=== PATIENT | male | born 1970 | race African-American/Black ===

== ENCOUNTER 2017-05-31 21:06 | Observation (INO) | payer SELFPAY ==
--- NOTE | 2017-05-31 21:38 | DR.GENAD ---
HPI - PCP Primary Care Physician: nfd - Complaint/Symptoms Chief Complaint Doctors Comments: Patient admits to having chest pressure mid- sternal for two days. The pressure seems to come and go. The duration is up to several minutes. He denies a history of cardiopulmonary disease. Chief Complaint:: "I CAN'T BREATH, AND I HAVE A LOT OF PRESSURE ON MY CHEST- POINTING MID CHEST WALL. - Source History Provided: Patient - Mode of Arrival Mode of Arrival: Ambulatory - Timing Onset of Chief Complaint: 05/28/17 PMH - PMH Past Medical History: No Past Surgical History: No Surgical History: Other - Family History History of Family Medical Conditions: Yes Family Medical History: Diabetes Mellitus, [place], Coronary Artery Disease, Hypertension - Social History Alcohol Use: Occasionally Do you use any recreational Drugs:: No (8 DAYS CLEAN OF THC, COCAINE) Lives With: Significant Other Lives Where: Home - infectious screening Have you traveled outside the country in the last 6 months?: No Isolation: Standard ROS - Review of Systems Eyes: No Symptoms Reported ENTM: No Symptoms Reported Respiratoy: No Symptoms Reported Cardiovascular: No Symptoms Reported Gastrointestinal/Abdominal: No Symptoms Reported Genitourinary: No Symptoms Reported Neurological: No Symptoms Reported Musculoskeletal: Chest wall Integumentary: No Symptoms Reported Hematologic/Lymphatic: No Symptoms Reported Endocrine: No Symptoms Reported Psychiatric: No Symptoms Reported All Other Systems: Reviewed and Negative PE - Vital Signs Vitals: Temperature 98.3 F Pulse Rate [Apical] 104 Pulse Rate 104 Respiratory Rate 24 Blood Pressure [Left Arm] 112/71 Blood Pressure 133/89 O2 Sat by Pulse Oximetry 100 - General Limitations: No Limitations General Appearance: Alert, In No Apparent Distress - Head Head Exam: Normal Inspection, Atraumatic - Eyes Eye exam: Normal Appearance, PERRL, EOMI - ENT ENT Exam: Normal Exam External Ear Exam: Normal External Inspection TM/Canal Exam: Bilateral Normal Nose Exam: Normal Nose Exam Mouth Exam: Normal Inspection Throat Exam: Normal Inspection - Neck Neck Exam: Normal Inspection, Full ROM - Chest Chest Inspection: Normal Inspection - Respiratory Respiratory Exam: Normal Lung Sounds Bilat Respiratory Exam: Bilateral Clear to Auscultation - Cardiovascular Cardiovascular Exam: Regular Rate, Normal Rhythm - Abdominal Exam Abdominal Exam: Normal Inspection, Normal Bowel Sounds Abdominal Tenderness: negative: RUQ, RLQ, LUQ, LLQ, Epigastrium, Suprapubic, Diffuse, Mild, Moderate, Severe, Other - Extremities Extremities Exam: Normal Inspection, Full ROM - Back Back Exam: Normal Inspection, Full ROM - Neurologic Neurological Exam: Alert, Oriented X3, CN II-XII Intact - Psychiatric Psychiatric Exam: Normal Affect - Skin Skin Exam: Warm, Dry, Intact Course - Reevaluation 1st: Improved ROR - Labs Reviewed Laboratory Results Reviewed?: Yes (D Dimer 421) Result Diagrams: 05/31/17 21:25 05/31/17 21:25 Laboratory: WBC 7.9 X10^3/uL (3.6-10.0) 05/31/17 21: RBC 4.87 X10^6/uL (4.7-6.0) 05/31/17 21: Hgb 14.9 g/dL (13.5-18.0) 05/31/17: Hct 43.0 % (42.0-54.0) 05/31/17 21: MCV 88.3 fL (80.0-100.0) 05/31/17 21: MCH 30.7 pg (27.0-34.0) 05/31/17 21: MCHC 34.7 g/dL (33.0-35.0) 05/31/17: RDW 13.6 % (11.6-16.5) 05/31/17: Plt Count 290 X10^3/uL (150.0-450.0) 05/31/17: MPV 8.6 fL (7.4-11.0) 05/31/17: Neut % 39.4 % (42.0-75.0) L 05/31/17 21: Lymph % 46.3 % (21.0-51.0) 05/31/17 21: [place] % 11.8 % (0.0-13.0) 05/31/17: Eos % 1.4 % (0.9-2.9) 05/31/17 21: Baso % 1.1 % (0.2-1.0) H 05/31/17 21: Neut # 3.1 x10^3/uL (2.2-4.8) 05/31/17 21: Lymph # 3.7 X10^3/uL (1.3-2.9) H 05/31/17 21:25 [place] # 0.9 x10^3/uL (0.3-0.8) H 05/31/17 21:25 Eos # 0.1 x10^3/uL (0.0-0.2) 05/31/17 21:25 Baso # 0.1 X10^3/uL (0.0-0.1) 05/31/17 21:25 Absolute Nucleated RBC 0.1 /100WBC 05/31/17 21:25 INR Target Range - 05/31/17 21:25 INR 1.10 (0.8-1.3) 05/31/17 21:25 PTT 27.2 SECONDS (22.9-36.5) 05/31/17 21:25 PTT Comment - 05/31/17 21:25 D-Dimer 421 ng/mL (0-400) H* 05/31/17 21:25 Sodium 138 mmol/L (136-145) 05/31/17 21:25 Corrected Sodium TNP 05/31/17 21:25 Potassium 3.9 mmol/L (3.5-5.1) 05/31/17 21:25 Chloride 103 mmol/L (98-107) 05/31/17 21:25 Carbon Dioxide 23.6 mmol/L (21-32) 05/31/17 21:25 BUN 16 mg/dL (7-18) 05/31/17 21:25 Creatinine 1.43 mg/dL (0.70-1.30) H 05/31/17 21:25 Est GFR (MDRD) Af Amer > 60 (>60) 05/31/17 21:25 Est GFR (MDRD) Non-Af 56 (>60) L 05/31/17 21:25 Glucose 105 mg/dL (65-99) H 05/31/17 21:25 Calcium 8.5 mg/dL (8.5-10.1) 05/31/17 21:25 Corrected Calcium 9.1 mg/dL (8.5-10.1) 05/31/17 21:25 Magnesium 2.1 mg/dL (1.7-2.9) 05/31/17 21:25 Total Bilirubin 0.80 mg/dL (0.2-1.0) 05/31/17 21:25 AST 180 Units/L (15-37) H 05/31/17 21:25 ALT 165 Units/L (12-78) H 05/31/17 21:25 Alkaline Phosphatase 104 Units/L (46-116) 05/31/17 21:25 Creatine Kinase 93 Units/L (39-308) 05/31/17 21:25 CK-MB (CK-2) 1.3 ng/mL (0-4.0) 05/31/17 21:25 CK/CKMB % Calc 1.4 % (<4) 05/31/17 21:25 Troponin I 0.13 ng/mL (0-1.5) 05/31/17 21:25 Total Protein 7.6 g/dL (6.4-8.2) 05/31/17 21:25 Albumin 3.3 g/dL (3.4-5.0) L 05/31/17 21:25 Globulin 4.3 g/dL (2.5-4.5) 05/31/17 21:25 Albumin/Globulin Ratio 0.8 Ratio (1.1-2.1) L 05/31/17 21:25 Specimen Type Clean catch urine 05/31/17 22:45 Urine Color Yellow (YELLOW) 05/31/17 22:45 Urine Appearance Clear (CLEAR) 05/31/17 22:45 Urine pH 5.0 (5.0 - 8.0) 05/31/17 22:45 Ur Specific [place] 1.010 (1.000-1.030) 05/31/17 22:45 Urine Protein Negative (NEGATIVE) 05/31/17 22:45 Urine Glucose (UA) Negative (NEGATIVE) 05/31/17 22:45 Urine Ketones Negative (NEGATIVE) 05/31/17 22:45 Urine Occult Blood 4+ (NEGATIVE) 05/31/17 22:45 Urine Nitrite Negative (NEGATIVE) 05/31/17 22:45 Urine Bilirubin Negative (NEGATIVE) 05/31/17 22:45 Urine Urobilinogen Normal (NORMAL) 05/31/17 22:45 Ur Leukocyte Esterase Negative (NEGATIVE) 05/31/17 22:45 Urine RBC 1-6 /HPF (NONE SEEN) 05/31/17 22:45 Urine WBC None seen /HPF (NONE SEEN) 05/31/17 22:45 Ur Squamous Epith Cells Rare /HPF (NEGATIVE) 05/31/17 22:45 Urine Bacteria Negative /HPF (NEGATIVE) 05/31/17 22:45 Ur Culture Indicated? No/not indicated 05/31/17 22:45 Urine Opiates Screen Negative (NEG=<300) 05/31/17 22:45 Urine Methadone Screen Negative (NEG=<300) 05/31/17 22:45 Ur Barbiturates Screen Negative (NEG=<200) 05/31/17 22:45 Ur Phencyclidine Scrn Negative (NEG=<25) 03 22:45 Ur Amphetamines Screen Negative (NEG=<1000) 03 22:45 U Benzodiazepines Scrn Negative (NEG=<200) 05/31/17 22:45 Urine Cocaine Screen Negative (NEG=<300) 05/31/17 22:45 U Marijuana (THC) Screen Negative (NEG=<50) 05/31/17 22:45 - XRAY XRAY Interpreted by: Radiologist (Chest: There is no pneumothorax or large effusion. Heart size is enlarged. Monitoring leads obscure minimal detail. Bilateral increased interstitial markings in a perihilar distribution noted. Impression: Cardiomegaly and pulmonary edema compatible with CHF. Follow up to resolution and with PA and Lat chest to exclude underlying process. CTA: Findings: There is cardiomegaly. Aortic arch branch vessels appear normal. There are bilateral effusions and patchy alveolar ground-glass opacities. Scarring is seen in the bases. Pulmonary artery bolus timing is adequate, without central or segmental pulmonary artery filling defect identified. Right middle lobe harmatoma noted. Shotty hilar lymph nodes noted. Impresson: There is cardiomegaly and pulmonary edema, with small right effusion, compatible with congestive hear failure. Concurrent pneumonia possible, No ulmonary htromboembolus seen. Nonobstructing right upper pole renal stone.) - Diagnosis Discharge Problem: Right kidney stone CHF (congestive heart failure) Qualifiers: Heart failure type: unspecified Heart failure chronicity: acute Qualified Code( s): I50.9 - Heart failure, unspecified Pneumonia Qualifiers: Pneumonia type: due to unspecified organism Laterality: bilateral Lung location : unspecified part of lung Qualified Code(s): J18.9 - Pneumonia, unspecified organism - Discharge Plan Condition: Stable - Follow ups/Referrals Follow ups/Referrals: NFD,None [Primary Care Provider] - 3 days - Instructions
[2017-05-31 21:48] LABS: BASOPHILS # (AUTO) 0.1 X10^3/uL (0.0-0.1); BASOPHILS % (AUTO) 1.1 % (0.2-1.0); EOSINOPHILS # (AUTO) 0.1 x10^3/uL (0.0-0.2); EOSINOPHILS % (AUTO) 1.4 % (0.9-2.9); HEMOGLOBIN 14.9 g/dL (13.5-18.0); LYMPHOCYTES # (AUTO) 3.7 X10^3/uL (1.3-2.9); LYMPHOCYTES % (AUTO) 46.3 % (21.0-51.0); MEAN CORPUSCULAR HEMOGLOBIN 30.7 pg (27.0-34.0); MEAN CORPUSCULAR HGB CONC 34.7 g/dL (33.0-35.0); MEAN CORPUSCULAR VOLUME 88.3 fL (80.0-100.0); MEAN PLATELET VOLUME 8.6 fL (7.4-11.0); MONOCYTES # (AUTO) 0.9 x10^3/uL (0.3-0.8); MONOCYTES % (AUTO) 11.8 % (0.0-13.0); NEUTROPHILS # (AUTO) 3.1 x10^3/uL (2.2-4.8); NEUTROPHILS % (AUTO) 39.4 % (42.0-75.0); PLATELET COUNT 290 X10^3/uL (150.0-450.0); RED BLOOD COUNT 4.87 X10^6/uL (4.7-6.0); RED CELL DISTRIBUTION WIDTH 13.6 % (11.6-16.5); WHITE BLOOD COUNT 7.9 X10^3/uL (3.6-10.0)
[2017-05-31 22:03] LABS: BLOOD UREA NITROGEN 16 mg/dL (7-18); CALCIUM 8.5 mg/dL (8.5-10.1); CARBON DIOXIDE 23.6 mmol/L (21-32); CHLORIDE 103 mmol/L (98-107); CREATININE 1.43 mg/dL (0.70-1.30); SODIUM 138 mmol/L (136-145); TROPONIN I 0.13 ng/mL (0-1.5); eGFR BLACK RACES > 60 (>60); eGFR NON BLACK RACES 56 (>60)
[2017-05-31 22:07] LABS: ALANINE AMINOTRANSFERASE 165 Units/L (12-78); ALBUMIN 3.3 g/dL (3.4-5.0); ALKALINE PHOSPHATASE 104 Units/L (46-116); ASPARTATE AMINO TRANSFERASE 180 Units/L (15-37); CKMB % 1.4 % (<4); COR CA(FOR HYPOALB) 9.1 mg/dL (8.5-10.1); CREATINE KINASE 93 Units/L (39-308); CREATINE KINASE MB 1.3 ng/mL (0-4.0); MAGNESIUM 2.1 mg/dL (1.7-2.9); TOTAL PROTEIN 7.6 g/dL (6.4-8.2)
--- NOTE | 2017-05-31 22:15 | RAD ---
Chest AP portable Indication: Chest pain Findings: There is no pneumothorax or large effusion. Heart size is enlarged. Monitoring leads obscur e minimal detail. Bilateral increased interstitial markings in a perihilar distribution noted. Impression: Cardiomegaly and pulmonary edema compatible with CHF. Follow-up to resolution and with PA and lateral chest , to exclude underlying process. Reported By:
[2017-05-31] MEDS ORDERED: LASIX IVP ONE ×2 (22:24→22:27)
[2017-05-31 23:11] LABS: BILIRUBIN,URINE NEGATIVE (NEGATIVE); BLOOD/HEMOGLOBIN,URINE 4+ (NEGATIVE); GLUCOSE, URINE NEGATIVE (NEGATIVE); KETONES,URINE NEGATIVE (NEGATIVE); LEUKOCYTE ESTERASE ,URINE NEGATIVE (NEGATIVE); NITRITES,URINE NEGATIVE (NEGATIVE); PROTEIN,URINE NEGATIVE (NEGATIVE); UROBILINOGEN,URINE NORMAL (NORMAL)
[2017-05-31 23:23] LABS: APPEARANCE,URINE CLEAR (CLEAR); BACTERIA,URINE NEGATIVE /HPF (NEGATIVE); COLOR,URINE YELLOW (YELLOW); SQUAMOUS EPITHELIAL CELL,UR RARE /HPF (NEGATIVE)
--- NOTE | 2017-05-31 23:24 | CT ---
CT angiogram chest with contrast Indication: Dyspnea and elevated D-dimer Technique: Helical images through the chest after IV contrast. Coronal and sagittal reformats provi ded. MIP images provided. Findings: Nonobstructing right upper pole renal stone partially visualized. No other acute abdomina l abnormality seen on limited images. Review of bone windows shows no destructive osseous lesion. Chest: There is cardiomegaly. Aortic arch branch vessels appear normal. There are bilateral effusi ons and patchy alveolar ground-glass opacities. Scarring is seen in the bases. Pulmonary artery bolus timing is adequate, without central or segmental pulmonary artery filling defe ct identified. Right middle lobe hamartoma noted. Shotty hilar lymph nodes noted. Impression: 1. There is cardiomegaly and pulmonary edema, with small right effusion, compatible with congestive h eart failure 2. Concurrent pneumonia possible. 3. No pulmonary thromboembolus seen. 4. Nonobstructing right upper pole renal stone. Reported By:
[2017-05-31] MEDS ORDERED: TUSSIONEX PENNKINETIC SUSP PO PRN (23:37)
[2017-05-31] MEDS ORDERED: NS 1/2 1000 ML IV 1,000 ML IV ONE (23:41)
[2017-05-31] MEDS ORDERED: LEVAQUIN PREMIX IV 500 MG 500 MG/100 ML BAG IV ONE (23:41)
[2017-05-31] MEDS ORDERED: NS 1/2 1000 ML IV 1,000 ML IV SCH (23:45)
[2017-05-31] MEDS ORDERED: LEVAQUIN PREMIX IV 750 MG 750 MG/150 ML BAG IV SCH (23:45)
[2017-05-31] MEDS ORDERED: SALINE 3% 15 ML NEB TX ONE (23:48)
[2017-05-31] MEDS ORDERED: SALINE 3% 15 ML NEB TX NEB ONE (23:52)
[2017-06-01] MEDS ORDERED: MORPHINE SULFATE INJ 2 MG INJ IVP PRN (03:01)
[2017-06-01 03:39] VITALS: BMI 26.3
[2017-06-01 04:42] LABS: BASOPHILS # (AUTO) 0.1 X10^3/uL (0.0-0.1); BASOPHILS % (AUTO) 1.3 % (0.2-1.0); EOSINOPHILS # (AUTO) 0.1 x10^3/uL (0.0-0.2); HEMATOCRIT 43.1 % (42.0-54.0); HEMOGLOBIN 15.1 g/dL (13.5-18.0); LYMPHOCYTES # (AUTO) 2.4 X10^3/uL (1.3-2.9); LYMPHOCYTES % (AUTO) 31.3 % (21.0-51.0); MEAN CORPUSCULAR HEMOGLOBIN 30.5 pg (27.0-34.0); MEAN CORPUSCULAR VOLUME 87.1 fL (80.0-100.0); MEAN PLATELET VOLUME 8.4 fL (7.4-11.0); MONOCYTES # (AUTO) 0.8 x10^3/uL (0.3-0.8); MONOCYTES % (AUTO) 10.8 % (0.0-13.0); NEUTROPHILS # (AUTO) 4.2 x10^3/uL (2.2-4.8); NEUTROPHILS % (AUTO) 55.6 % (42.0-75.0); PLATELET COUNT 298 X10^3/uL (150.0-450.0); RED BLOOD COUNT 4.95 X10^6/uL (4.7-6.0); RED CELL DISTRIBUTION WIDTH 13.4 % (11.6-16.5); WHITE BLOOD COUNT 7.6 X10^3/uL (3.6-10.0)
[2017-06-01 04:47] LABS: CHOL/HDL RATIO 5.3 (0.0-5.0)
[2017-06-01] MEDS ORDERED: DUONEB 0.5 MG/3 MG ONE (04:50)
[2017-06-01 04:51] LABS: BLOOD UREA NITROGEN 15 mg/dL (7-18); CALCIUM 8.6 mg/dL (8.5-10.1); CARBON DIOXIDE 20.7 mmol/L (21-32); CHLORIDE 103 mmol/L (98-107); CREATININE 1.25 mg/dL (0.70-1.30); SODIUM 138 mmol/L (136-145); TROPONIN I 0.13 ng/mL (0-1.5); eGFR BLACK RACES > 60 (>60); eGFR NON BLACK RACES > 60 (>60)
[2017-06-01 04:56] LABS: ALANINE AMINOTRANSFERASE 153 Units/L (12-78); ALBUMIN 3.3 g/dL (3.4-5.0); ALKALINE PHOSPHATASE 95 Units/L (46-116); ASPARTATE AMINO TRANSFERASE 103 Units/L (15-37); CKMB % 1.5 % (<4); COR CA(FOR HYPOALB) 9.2 mg/dL (8.5-10.1); CREATINE KINASE 76 Units/L (39-308); CREATINE KINASE MB 1.1 ng/mL (0-4.0); TOTAL PROTEIN 7.6 g/dL (6.4-8.2)
[2017-06-01] MEDS ORDERED: DUONEB 0.5 MG/3 MG NEB SCH (05:00)
[2017-06-01 05:17] LABS: B-TYPE NATRIURETIC PEPTIDE 1620 pg/mL (0-79)
[2017-06-01 07:12] VITALS: BP 129/98
[2017-06-01] MEDS ORDERED: ROBITUSSIN DM PO SCH (09:00)
[2017-06-01 10:57] LABS: CKMB % 1.7 % (<4); CREATINE KINASE MB 1.2 ng/mL (0-4.0); TROPONIN I 0.12 ng/mL (0-1.5)
[2017-06-01] MEDS ORDERED: LEVAQUIN PREMIX IV 750 MG 750 MG/150 ML BAG IV SCH (21:00)
== END 2017-06-01 10:50 | disposition home or self-care (01) ==
LOC: ER 21:18 → OBS 06-01 02:10
PROVIDERS: ADMIT Internal Medicine; ATTEND Internal Medicine
DX: J18.9 Pneumonia, unspecified organism (principal); R07.89 Other chest pain; I50.9 Heart failure, unspecified; Q85.9 Phakomatosis, unspecified; N20.0 Calculus of kidney; I51.7 Cardiomegaly; R94.31 Abnormal electrocardiogram [ECG] [EKG]
CPT/HCPCS: 36415; 71045; 71275; 80053; 80061; 80307; 81001; 82550; 82553; 83735; 83880; 84484; 85025; 85378; 85610; 85730; 87040; 93005; 93010; 94640; 94760; 96365; 96367; 96374; 96375; 99284; A4222; G0378; G0434; J1940; J1956; J7620

== ENCOUNTER 2017-06-25 17:58 | Emergency (ER) | payer SELFPAY ==
[2017-06-25 18:10] VITALS: BMI 27.7
--- NOTE | 2017-06-25 18:13 | DR.CP ---
HPI - Time Seen Time seen: 18:10 - PCP Primary Care Physician: MILDRED BOOGIE - HPI Comment HPI Comment: WORSE TODAY. RECENT PNEUMONIA AND CURRENTLY ON LASIX. PATIENT SAID HE IS COMPLIANT WITH HIS MEDICATIONS. NO FEVER. STILL COUGHING, PRODUCTIVE COUGH , CLEAR SPUTUM. - Complaint Chief Complaint Doctor Comments: INCREASING SOB AND CHEST PAIN TIMES 2 DAYS. Chief Complaint:: PT C/O SOB, AND CHEST PAIN .. PT C/O HAVING PNEUMONIA A WEEK AGO AND THIS AM PT STATES HIM SYMPTOMS WORSEN,,, PTS LUNGS ARE CLEAR.. PT IS HAVING HEAVY RESP IN TRIAGE, Self Treatment fo Chief Complaint: ALEVE , NEBULIZERS , - Reviewed Nurses Notes Review: Yes - Source History Provided: Patient - Mode of Arrival Mode of Arrival: Ambulatory - Timing Onset of Chief Complaint: 06/24/17 Came on: Gradually Pain: Present Now - Duration Duration: Constant Duration: Days - Location Location of Chest Pain: Left, Chest Chest Pain Radiation Location: None - Context Onset: At rest, With light exertion Cardiac Risk Factors: None PE Risk Factors: None History of: Similar pain in the past Prehospital Care: None - Quality Quality: Sharp - Severity Severity: Moderate - Modifying Factors Worsens: Nothing Impoves: Nothing - Associated Signs and Symptoms Associated Signs and Symptoms: Shortness of Breath PMH - PMH Past Medical History: No Past Surgical History: No Surgical History: Other - Family History History of Family Medical Conditions: No Family Medical History: Diabetes Mellitus, [place], Coronary Artery Disease, Hypertension - Social History Does patient currently use any type of tobacco product: No Have you used tobacco products in the last 12 months: No Type of Tobacco Use: None Does any household member use tobacco: No Alcohol Use: None Do you use any recreational Drugs:: No Lives With: Family Lives Where: Home - infectious screening In the last 2 months have you had wt loss of >10#?: NO Have you had fever, night sweats or hemotysis?: No Have you traveled outside the country in the last 6 months?: No Isolation: Standard ROS - Review of Systems Constitutional: No Symptoms Reported Eyes: No Symptoms Reported ENTM: No Symptoms Reported Respiratoy: No Symptoms Reported Cardiovascular: No Symptoms Reported Gastrointestinal/Abdominal: No Symptoms Reported Genitourinary: No Symptoms Reported Neurological: No Symptoms Reported Musculoskeletal: No Symptoms Reported Integumentary: No Symptoms Reported Hematologic/Lymphatic: No Symptoms Reported Endocrine: No Symptoms Reported All Other Systems: Reviewed and Negative PE - Vitals Vitals: Temperature 96.9 F Pulse Rate [Left Brachial] 82 Pulse Rate 107 Respiratory Rate 18 Blood Pressure [Left Arm] 126/74 Blood Pressure 139/69 O2 Sat by Pulse Oximetry 100 - General Limitations: No Limitations General Appearance: Alert - Head Head Exam: Normal Inspection - Eyes Eye exam: Normal Appearance - ENT ENT Exam: Normal External Ear Exam - Chest Chest Inspection: Symmetric Chest Wall Rise - Respiratory Respiratory Exam: Normal Lung Sounds Bilat Respiratory Exam: Bilateral Clear to Auscultation - Cardiovascular Cardiovascular Exam: Regular Rate, Normal Rhythm, Normal Heart Sounds - Abdominal Exam Abdominal Exam: Normal Bowel Sounds, Soft. negative: Tenderness - Extremities Extremities Exam: Normal Inspection - Back Back Exam: Normal Inspection - Neurologic Neurological Exam: Alert, Oriented X3 - Psychiatric Psychiatric Exam: Normal Affect, Normal Mood - Skin Skin Exam: Normal Color MDM - Additional Information Additional Information Obtained From: Family - Differential Diagnosis Differential Diagnosis: Angina, Chest Wall Pain, Myocardial Infarction, Pericarditis, Pleuritis, Pancreatitis, Pneumonia, Pneumothorax, Pulmonary Embolus Course - Treatment Treatment: SEE ORDERS. - Education/Counseling Education/Counseling: Patient, Family, Education Educated On: Diagnosis, Needs for Follow Up ROR - Labs Reviewed Laboratory Results Reviewed?: Yes Result Diagrams: 06/25/17 18:37 06/25/17 18:37 Laboratory: WBC 8.0 X10^3/uL (3.6-10.0) 06/25/17 18:37 RBC 4.98 X10^6/uL (4.7-6.0) 06/25/17 18:37 Hgb 15.3 g/dL (13.5-18.0) 06/25/17 18:37 Hct 44.1 % (42.0-54.0) 06/25/17 18:37 MCV 88.6 fL (80.0-100.0) 06/25/17 18:37 MCH 30.7 pg (27.0-34.0) 06/25/17 18:37 MCHC 34.6 g/dL (33.0-35.0) 06/25/17 18:37 RDW 13.5 % (11.6-16.5) 06/25/17 18:37 Plt Count 326 X10^3/uL (150.0-450.0) 06/25/17 18:37 MPV 7.9 fL (7.4-11.0) 06/25/17 18:37 Neut % (Auto) 51.8 % (42.0-75.0) 06/25/17 18:37 Lymph % (Auto) 34.1 % (21.0-51.0) 06/25/17 18:37 [place] % (Auto) 9.2 % (0.0-13.0) 06/25/17 18:37 Eos % (Auto) 3.5 % (0.9-2.9) H 06/25/17 18:37 Baso % (Auto) 1.4 % (0.2-1.0) H 06/25/17 18:37 Neut # (Auto) 4.1 x10^3/uL (2.2-4.8) 06/25/17 18:37 Lymph # (Auto) 2.7 X10^3/uL (1.3-2.9) 06/25/17 18:37 [place] # (Auto) 0.7 x10^3/uL (0.3-0.8) 06/25/17 18:37 Eos # (Auto) 0.3 x10^3/uL (0.0-0.2) H 06/25/17 18:37 Baso # (Auto) 0.1 X10^3/uL (0.0-0.1) 06/25/17 18:37 Absolute Nucleated RBC 0.1 /100WBC 06/25/17 18: D-Dimer 593 ng/mL (0-400) H* 06/25/17 18:37 Sample Site Right brachial 06/25/17 18:33 ABG pH 7.440 (7.35-7.45) 06/25/17 18:33 ABG pCO2 29.0 mmHg (35.0-45.0) L 06/25/17 18:33 ABG pO2 89.0 mmHg (80.0-100.0) 06/25/17 18:33 ABG HCO3 19.7 mmol/L (22-26) L 06/25/17 18:33 ABG O2 Saturation 97.0 % (90-100) 06/25/17 18:33 ABG Base Excess -3.4 mmol/L (-2.0-2.0) L 06/25/17 18:33 [place] Test Na 06/25/17 18:33 A-a Gradient 24.0 mmHg 06/25/17 18:33 FiO2 21.000 06/25/17 18:33 Blood Gas Comments [place] well aw 06/25/17 18:33 Sodium 139 mmol/L (136-145) 06/25/17 18:37 Corrected Sodium 140 mmol/L (136-145) 06/25/17 18:37 Potassium 3.9 mmol/L (3.5-5.1) 06/25/17 18:37 Chloride 105 mmol/L (98-107) 06/25/17 18:37 Carbon Dioxide 20.4 mmol/L (21-32) L 06/25/17 18:37 BUN 14 mg/dL (7-18) 06/25/17 18:37 Creatinine 1.50 mg/dL (0.70-1.30) H 06/25/17 18:37 Est GFR (MDRD) Af Amer > 60 (>60) 06/25/17 18:37 Est GFR (MDRD) Non-Af 53 (>60) L 06/25/17 18:37 Glucose 133 mg/dL (65-99) H 06/25/17 18:37 Calcium 8.5 mg/dL (8.5-10.1) 06/25/17 18:37 Corrected Calcium TNP 06/25/17 18:37 Total Bilirubin 0.70 mg/dL (0.2-1.0) 06/25/17 18:37 AST 40 Units/L (15-37) H 06/25/17 18:37 ALT 75 Units/L (12-78) 06/25/17 18:37 Alkaline Phosphatase 75 Units/L (46-116) 06/25/17 18:37 Creatine Kinase 76 Units/L (39-308) 06/25/17 21:45 CK-MB (CK-2) 1.2 ng/mL (0-4.0) 06/25/17 21:45 CK/CKMB % Calc 1.6 % (<4) 06/25/17 21:45 Troponin I 0.19 ng/mL (0-1.5) 06/25/17 21:45 B-Natriuretic Peptide 1460 pg/mL (0-79) H* 06/25/17 21:45 Total Protein 7.7 g/dL (6.4-8.2) 06/25/17 18:37 Albumin 3.4 g/dL (3.4-5.0) 06/25/17 18:37 Globulin 4.3 g/dL (2.5-4.5) 06/25/17 18:37 Albumin/Globulin Ratio 0.8 Ratio (1.1-2.1) L 06/25/17 18:37 - XRAY XRAY Interpreted by: Radiologist XRAY Findings: REPORT DISCUSS WITH PATIENT. - EKG Rhythm: ST (EKG NOTED) - Diagnosis Discharge Problem: CHF (congestive heart failure) Qualifiers: Heart failure type: combined systolic and diastolic Heart failure chronicity: acute on chronic Qualified Code(s): I50.43 - Acute on chronic combined systolic (congestive) and diastolic (congestive) heart failure Chest pain Qualifiers: Chest pain type: intercostal pain Qualified Code(s): R07.82 - Intercostal pain Dyspnea Qualifiers: Dyspnea type: shortness of breath Qualified Code(s): R06.02 - Shortness of breath - Discharge Plan Disposition: 01 HOME, SELF-CARE Condition: Stable - Follow ups/Referrals Follow ups/Referrals: NFD,None [Primary Care Provider] - 06/26/17 - Instructions Instructions: Shortness of Breath, Adult, [id number], Shortness of Breath, Adult, Heart Failure, [id number], Chest Pain Observation Additional Instructions: RETURN TO ED IF WORSE.
[2017-06-25 18:54] LABS: BASOPHILS # (AUTO) 0.1 X10^3/uL (0.0-0.1); BASOPHILS % (AUTO) 1.4 % (0.2-1.0); EOSINOPHILS # (AUTO) 0.3 x10^3/uL (0.0-0.2); EOSINOPHILS % (AUTO) 3.5 % (0.9-2.9); HEMATOCRIT 44.1 % (42.0-54.0); HEMOGLOBIN 15.3 g/dL (13.5-18.0); LYMPHOCYTES # (AUTO) 2.7 X10^3/uL (1.3-2.9); LYMPHOCYTES % (AUTO) 34.1 % (21.0-51.0); MEAN CORPUSCULAR HEMOGLOBIN 30.7 pg (27.0-34.0); MEAN CORPUSCULAR HGB CONC 34.6 g/dL (33.0-35.0); MEAN CORPUSCULAR VOLUME 88.6 fL (80.0-100.0); MEAN PLATELET VOLUME 7.9 fL (7.4-11.0); MONOCYTES # (AUTO) 0.7 x10^3/uL (0.3-0.8); MONOCYTES % (AUTO) 9.2 % (0.0-13.0); NEUTROPHILS # (AUTO) 4.1 x10^3/uL (2.2-4.8); NEUTROPHILS % (AUTO) 51.8 % (42.0-75.0); PLATELET COUNT 326 X10^3/uL (150.0-450.0); RED BLOOD COUNT 4.98 X10^6/uL (4.7-6.0); RED CELL DISTRIBUTION WIDTH 13.5 % (11.6-16.5)
[2017-06-25 18:54] LABS: ABG BASE EXCESS -3.4 mmol/L (-2.0-2.0); ABG HCO3 19.7 mmol/L (22-26)
[2017-06-25 19:03] LABS: BLOOD UREA NITROGEN 14 mg/dL (7-18); CALCIUM 8.5 mg/dL (8.5-10.1); CARBON DIOXIDE 20.4 mmol/L (21-32); CHLORIDE 105 mmol/L (98-107); COR NA(FOR HYPERGLY) 140 mmol/L (136-145); SODIUM 139 mmol/L (136-145); TROPONIN I 0.22 ng/mL (0-1.5); eGFR BLACK RACES > 60 (>60); eGFR NON BLACK RACES 53 (>60)
[2017-06-25 19:08] LABS: ALANINE AMINOTRANSFERASE 75 Units/L (12-78); ALBUMIN 3.4 g/dL (3.4-5.0); ALKALINE PHOSPHATASE 75 Units/L (46-116); ASPARTATE AMINO TRANSFERASE 40 Units/L (15-37); CKMB % 1.8 % (<4); CREATINE KINASE 76 Units/L (39-308); CREATINE KINASE MB 1.4 ng/mL (0-4.0); TOTAL PROTEIN 7.7 g/dL (6.4-8.2)
[2017-06-25] MEDS ORDERED: NS 100 ML IV 100 ML IV ONE (20:06)
--- NOTE | 2017-06-25 20:48 | CT ---
CT CHEST WITH IV CONTRAST - PE PROTOCOL HISTORY: Chest pain and elevated D-dimer Comparison: 05/31/2017 Technique: Non gated axial images of the chest were obtained with intravenous contrast according to p monary embolism protocol. MIPS were reconstructed. Dose reduction techniques including Automated Ex posure Control (AEC) and adjustment of mA and kV were utlized. Findings: No evidence of a pulmonary embolism to the level of the segmental pulmonary arteries. Mild cardiomegaly. No pericardial effusion. Shotty mediastinal lymph nodes. Larger lymph node can be seen the sub carinal region likely measuring approximately 3.5 cm on series 4, image 51. Marked improvement of previously identified bilateral ground-glass opacities. There are some small re sidual bilateral upper lobe ground-glass opacities. Airways are patent. No suspicious pulmonary nodul es or masses. Limited images of the upper abdomen are unremarkable. No aggressive osseous lesions. IMPRESSION: 1. No evidence of pulmonary embolism. 2. Improvement of previously identified bilateral ground-glass opacities. 2. Cardiomegaly. 3. Redemonstration of mediastinal lymphadenopathy. Reported By:
[2017-06-25 22:16] LABS: CKMB % 1.6 % (<4); CREATINE KINASE MB 1.2 ng/mL (0-4.0); TROPONIN I 0.19 ng/mL (0-1.5)
[2017-06-25] MEDS ORDERED: LASIX IVP ONE ×2 (22:53→22:57)
[2017-06-25 23:09] VITALS: BP 126/74
== END 2017-06-25 23:07 | disposition home or self-care (01) ==
LOC: ER 18:11
DX: I50.43 Acute on chronic combined systolic (congestive) and diastolic (congestive) heart failure (principal); R07.82 Intercostal pain; R06.02 Shortness of breath; R94.31 Abnormal electrocardiogram [ECG] [EKG]; I51.7 Cardiomegaly
CPT/HCPCS: 36415; 36600; 71275; 80053; 82550; 82553; 82803; 83880; 84484; 85025; 85378; 96365; 96374; 99283; 99285; A4222; J1940

== ENCOUNTER 2019-05-12 07:34 | Inpatient (IN) ==
[2019-05-12 07:40] VITALS: BMI 27.6
[2019-05-12 08:19] LABS: BASOPHILS % (AUTO) 1.3 % (0.2-1.0); HEMATOCRIT 42.3 % (42.0-54.0); HEMOGLOBIN 14.5 g/dL (13.5-18.0); LYMPHOCYTES % (AUTO) 36.5 % (21.0-51.0); MEAN CORPUSCULAR HEMOGLOBIN 30.6 pg (27.0-34.0); MEAN CORPUSCULAR HGB CONC 34.3 g/dL (33.0-35.0); MEAN CORPUSCULAR VOLUME 89.1 fL (80.0-100.0); MEAN PLATELET VOLUME 8.8 fL (7.4-11.0); MONOCYTES % (AUTO) 8.8 % (0.0-13.0); NEUTROPHILS # (AUTO) 3.5 x10^3/uL (2.2-4.8); NEUTROPHILS % (AUTO) 50.4 % (42.0-75.0); PLATELET COUNT 250 X10^3/uL (150.0-450.0); RED BLOOD COUNT 4.74 X10^6/uL (4.7-6.0); RED CELL DISTRIBUTION WIDTH 13.8 % (11.6-16.5)
[2019-05-12 08:20] LABS: BASOPHILS # (AUTO) 0.1 X10^3/uL (0.0-0.1); EOSINOPHILS # (AUTO) 0.2 x10^3/uL (0.0-0.2); LYMPHOCYTES # (AUTO) 2.5 X10^3/uL (1.3-2.9); MONOCYTES # (AUTO) 0.6 x10^3/uL (0.3-0.8)
--- NOTE | 2019-05-12 08:20 | DR.SOBA ---
HPI Time Seen Time Seen by Provider: 05/12/19 08:19 Primary Care Physician Primary Care Physician: MILDRED BOOGIE HPI Comment HPI Comment: PATIENT IS 48YR OLD MALE IN ER WITH INCREASING SOB, CHEST PAIN AND PALPITATION TIMES 2 WEEKKS. Complaints Chief Complaint Doctors Comments: INCREASING SOB, CHEST PAIN, PALPITATION TIMES 2 DAYS. Chief Complaint:: PT TO ER , VERY ANXIOUS PT STATES HE HAS BEEN SOB, AND HAS TROUBLE GETTING AIR FOR 2 DAYS, PT C/O THAT THIS IS THE WORST ITS BEEN AND THAT HE HAS BEEN COUGHING A LITTLE , PT LUNGS ARE CLEAR NO RESP DISTRESS NOTED ,BR Reviewed Nurses Notes Reviewed: Yes Source History Provided: Patient and Family Member Mode of Arrival Mode of Arrival: Wheelchair Timing Onset of Chief Complaint: 05/10/19 Duration Duration: Days Context Onset:: At Rest PE Risk Factors:: None History of:: CHF Currently on:: Inhaled Bronchodilators Prehospital Care:: Inhaled B2 Modifying Factors Worsens:: Exertion and Lying Flat Improves:: Rest and Sitting Up Associated Signs and Symptoms Associated Signs and Symptoms: Wheeze, Cough and Chest Pain If Chest Pain Quality: Pleuritic (TIGHTNESS.) Location: Substernal If Cough Cough: Productive and Yellow PMH PMH Past Medical History: Yes Past Medical History: Angina, CHF, Headaches and Hypertension Past Surgical History: Yes Surgical History: Other Family History History of Family Medical Conditions: Yes Family Medical History: Diabetes Mellitus, CT, Coronary Artery Disease, Heart Failure, Sudden Cardiac and Hypertension Social History Does patient currently use any type of tobacco product: Yes Have you used tobacco products in the last 12 months: Yes Type of Tobacco Use: Cigars Does any household member use tobacco: No Alcohol Use: None Do you use any recreational Drugs:: No Lives With: Family Lives Where: Home infectious screening In the last 2 months have you had wt loss of >10#?: NO Have you had fever, night sweats or hemotysis?: No Have you traveled outside the country in the last 6 months?: No Isolation: Standard ROS Review of Systems Constitutional: See HPI, Weakness and Fatigue; negative Fever Eyes: No Symptoms Reported and See HPI ENTM: See HPI, Nose Discharge and Nose Congestion; negative Ear Pain and Throat Pain Respiratoy: See HPI, Productive Cough, Short of Breath and Wheezing Cardiovascular: See HPI, Chest Pain and Palpitations; negative Edema Gastrointestinal/Abdominal: No Symptoms Reported, See HPI and Nausea; negative Abdominal Pain, Constipation, Diarrhea and Vomiting Genitourinary: No Symptoms Reported and See HPI; negative Dysuria, Frequency and Hematuria Neurological: See HPI, Headache and Weakness; negative Dizziness Musculoskeletal: See HPI, Back Pain and Muscle Pain Integumentary: No Symptoms Reported and See HPI; negative Change in Color, Rash and Juandice Hematologic/Lymphatic: No Symptoms Reported and See HPI; negative Easy Bruising and Swollen Glands Endocrine: No Symptoms Reported and See HPI; negative Increased Thirst, Increased Urine and Decreased Appetite Psychiatric: No Symptoms Reported and See HPI All Other Systems: Reviewed and Negative PE Vital Signs Vitals: Temperature 97.2 F Pulse Rate 147 Respiratory Rate 36 Blood Pressure [Left Arm] 134/100 Blood Pressure 133/99 O2 Sat by Pulse Oximetry 90 General Limitations: No Limitations General Appearance: Alert and In No Apparent Distress Head Head Exam: Normal Inspection and Atraumatic Eyes Eye exam: Normal Appearance and PERRL; negative Scleral Icterus and Conjunctival Injection ENT ENT Exam: Normal Exam, Normal Oropharynx, Normal External Ear Exam and TM's Normal Bilaterally Neck Neck Exam: Normal Inspection and Trachea Midline; negative Tenderness and Lymphadenopathy Chest Chest Inspection: Normal Inspection and Symmetric Chest Wall Rise; negative Tenderness Respiratory Respiratory Exam: Normal Lung Sounds Bilat, Accessory Muscle Use and Respiratory Distress; negative Chest Wall Tenderness Respiratory Exam: Bilateral: Wheezing and Bilateral: Rhonchi, Upper: Wheezing and Lower: Wheezing and Lower: Rhonchi Cardiovascular Cardiovascular Exam: Normal Rhythm and Tachycardia Abdominal Exam Abdominal Exam: Normal Inspection, Normal Bowel Sounds and Soft; negative Tenderness Extremities Extremities Exam: Normal Inspection and Normal Capillary Refill; negative Tenderness, Edema and Calf Tenderness Back Back Exam: Normal Inspection; negative (R) CVA Tenderness and (L) CVA Tenderness Neurologic Neurological Exam: Alert, Oriented X3 and CN II-XII Intact; negative Motor Sens ory Deficit Psychiatric Psychiatric Exam: Normal Affect and Normal Mood Skin Skin Exam: Dry MDM Differential Diagnosis Differential Diagnosis: Bronchitis, CHF, COPD, Dysrhythmia, Hyponatremia, Mycardial Infarction, Pneumonia, Pneumothorax, Pulmonary embolism and Sinusitis Differential Diagnosis Comment:: SUBSTANCE USE. COURSE Treatment Treatment: SEE ORDERS. Consultation Consultation Comments: DISCUSSED PATIENT WITH DR. LEVY. WILL ADMIT PATIENT. Education/Counseling Education/Counseling: Patient Educated On: Diagnosis ROR Labs Reviewed Laboratory Results Reviewed?: Yes Result Diagrams: 05/14/19 05:15 05/14/19 05:15 Laboratory: 05/12/19 09:42 Blood Blood Culture - Preliminary 05/12/19 10:08 Blood Blood Culture - Preliminary WBC 7.0 X10^3/uL (3.6-10.0) 05/12/19 08:04 RBC 4.74 X10^6/uL (4.7-6.0) 05/12/19 08:04 Hgb 14.5 g/dL (13.5-18.0) 05/12/19 08:04 Hct 42.3 % (42.0-54.0) 05/12/19 08:04 MCV 89.1 fL (80.0-100.0) 05/12/19 08:04 MCH 30.6 pg (27.0-34.0) 05/12/19 08:04 MCHC 34.3 g/dL (33.0-35.0) 05/12/19 08:04 RDW 13.8 % (11.6-16.5) 05/12/19 08:04 Plt Count 250 X10^3/uL (150.0-450.0) 05/12/19 08:04 MPV 8.8 fL (7.4-11.0) 05/12/19 08:04 Neut % (Auto) 50.4 % (42.0-75.0) 05/12/19 08:04 Lymph % (Auto) 36.5 % (21.0-51.0) 05/12/19 08:04 [place] % (Auto) 8.8 % (0.0-13.0) 05/12/19 08:04 Eos % (Auto) 3.0 % (0.9-2.9) H 05/12/19 08:04 Baso % (Auto) 1.3 % (0.2-1.0) H 05/12/19 08:04 Neut # (Auto) 3.5 x10^3/uL (2.2-4.8) 05/12/19 08:04 Lymph # (Auto) 2.5 X10^3/uL (1.3-2.9) 05/12/19 08:04 [place] # (Auto) 0.6 x10^3/uL (0.3-0.8) 05/12/19 08:04 Eos # (Auto) 0.2 x10^3/uL (0.0-0.2) 05/12/19 08:04 Baso # (Auto) 0.1 X10^3/uL (0.0-0.1) 05/12/19 08:04 Absolute Nucleated RBC 0.1 /100WBC 05/12/19 08:04 PT 14.3 SECONDS (11.8-14.3) 05/12/19 08:04 INR Target Range - 05/12/19 08:04 INR 1.15 (0.8-1.3) 05/12/19 08:04 APTT 25.1 SECONDS (22.9-36.5) 05/12/19 08:04 PTT Comment - 05/12/19 08:04 D-Dimer 546 ng/mL (0-400) H* 05/12/19 08:04 Sample Site Rra 05/12/19 09:50 ABG pH 7.490 (7.35-7.45) H 05/12/19 09:50 ABG pCO2 29.0 mmHg (35.0-45.0) L 05/12/19 09:50 ABG pO2 65.0 mmHg (80.0-100.0) L 05/12/19 09:50 ABG HCO3 22.1 mmol/L (22-26) 05/12/19 09:50 ABG O2 Saturation 94.0 % (90-100) 05/12/19 09:50 ABG Base Excess -0.3 mmol/L (-2.0-2.0) 05/12/19 09:50 [place] Test Pos 05/12/19 09:50 A-a Gradient 48.0 mmHg 05/12/19 09:50 FiO2 21.0 05/12/19 09:50 Blood Gas Comments [place] well eb 05/12/19 09:50 Sodium 137 mmol/L (136-145) 05/12/19 08:04 Corrected Sodium 138 mmol/L (136-145) 05/12/19 08:04 Potassium 4.7 mmol/L (3.5-5.1) 05/12/19 08:04 Chloride 104 mmol/L (98-107) 05/12/19 08:04 Carbon Dioxide 25.1 mmol/L (21-32) 05/12/19 08:04 BUN 14 mg/dL (7-18) 05/12/19 08:04 Creatinine 1.43 mg/dL (0.70-1.30) H 05/12/19 08:04 Est GFR (MDRD) Af Amer > 60 (>60) 05/12/19 08:04 Est GFR (MDRD) Non-Af 56 (>60) L 05/12/19 08:04 Glucose 126 mg/dL (65-99) H 05/12/19 08:04 Lactic Acid 2.3 mmol/L (0.4-2.0) H 05/12/19 08:48 Calcium 9.0 mg/dL (8.5-10.1) 05/12/19 08:04 Corrected Calcium 9.6 mg/dL (8.5-10.1) 05/12/19 08:04 Total Bilirubin 1.00 mg/dL (0.2-1.0) 05/12/19 08:04 AST 56 Units/L (15-37) H 05/12/19 08:04 ALT 76 Units/L (12-78) 05/12/19 08:04 Alkaline Phosphatase 93 Units/L (46-116) 05/12/19 08:04 Creatine Kinase 60 Units/L (39-308) 05/12/19 10:08 CK-MB (CK-2) 1.0 ng/mL (0-4.0) 05/12/19 10:08 CK/CKMB % Calc 1.7 % (<4) 05/12/19 10:08 Troponin I 0.18 ng/mL (0-1.5) 05/12/19 10:08 B-Natriuretic Peptide 1580 pg/mL (0-79) H* 05/12/19 08:04 Total Protein 7.8 g/dL (6.4-8.2) 05/12/19 08:04 Albumin 3.2 g/dL (3.4-5.0) L 05/12/19 08:04 Globulin 4.6 g/dL (2.5-4.5) H 05/12/19 08:04 Albumin/Globulin Ratio 0.7 Ratio (1.1-2.1) L 05/12/19 08:04 Specimen Type Random urine 05/12/19 11:37 Urine Color Yellow (YELLOW) 05/12/19 11:37 Urine Appearance Clear (CLEAR) 05/12/19 11:37 Urine pH 5.0 (5.0 - 8.0) 05/12/19 11:37 Ur Specific [place] 1.010 (1.000-1.030) 05/12/19 11:37 Urine Protein Negative (NEGATIVE) 05/12/19 11:37 Urine Glucose (UA) Negative (NEGATIVE) 05/12/19 11:37 Urine Ketones Negative (NEGATIVE) 05/12/19 11:37 Urine Occult Blood Negative (NEGATIVE) 05/12/19 11:37 Urine Nitrite Negative (NEGATIVE) 05/12/19 11:37 Urine Bilirubin Negative (NEGATIVE) 05/12/19 11:37 Urine Urobilinogen Normal (NORMAL) 05/12/19 11:37 Ur Leukocyte Esterase Negative (NEGATIVE) 05/12/19 11:37 Urine Opiates Screen Negative (NEG=<300) 05/12/19 11:37 Urine Methadone Screen Negative (NEG=<300) 05/12/19 11:37 Ur Barbiturates Screen Negative (NEG=<200) 05/12/19 11:37 Ur Phencyclidine Scrn Negative (NEG=<25) 05/12/19 11:37 Ur Amphetamines Screen Positive (NEG=<1000) 05/12/19 11:37 U Benzodiazepines Scrn Negative (NEG=<200) 05/12/19 11:37 Urine Cocaine Screen Positive (NEG=<300) 05/12/19 11:37 U Marijuana (THC) Screen Negative (NEG=<50) 05/12/19 11:37 Influenza Type A (PCR) Negative (NEGATIVE) 05/12/19 08:05 Influenza Type B (PCR) Negative (NEGATIVE) 05/12/19 08:05 S. pyogenes (TEM-PCR) Not detected (NOT DETECT) 05/12/19 08:05 XRAY XRAY Interpreted by: Radiologist (REPORTS NOTED AND DISCUSSED WITH PATIENT.) and Self EKG Rate: 107 [place]: Normal Rhythm: ST Block: None Hypertrophy: LAE and LVH ST: Nonsp Opioid Opioid Risk Tool Age (Jose David box if 16-45): No History of Preadolescent Sexual Abuse: No Total: 0 Total Score Risk Category: Low Risk Copyright: [facility] predicting aberrant behaviors Diagnosis Discharge Problem: CHF (congestive heart failure) Qualifiers: Heart failure type: combined systolic and diastolic Heart failure chronicity: acute on chronic Qualified Code(s): I50.43 - Acute on chronic combined systolic (congestive) and diastolic (congestive) heart failure Pneumonia Qualifiers: Pneumonia type: due to unspecified organism Laterality: bilateral Lung location: lower lobe of lung Qualified Code(s): J18.9 - Pneumonia, unspecified organism Pulmonary emboli Qualifiers: Pulmonary embolism type: unspecified Chronicity: acute Acute cor pulmonale presence: without acute cor pulmonale Qualified Code(s): I26.99 - Other pulmonary embolism without acute cor pulmonale Instructions Instructions: Bleeding Precautions When on Anticoagulant Therapy, Pediatric Nonspecific Chest Pain Pulmonary Embolism Steps to Quit Smoking, Jsxq-[id number] Vitamin K Foods and Warfarin Illegal Drug Use Information, Adult Health Risks of Smoking Warfarin Coagulopathy Prothrombin Time, International Normalized Ratio Test Bleeding Precautions When on Anticoagulant Therapy, Adult Cannabis Use Disorder What You Need to Know About Warfarin Hypertension, [id number] Heart Failure, [id number] Managing Your Hypertension Forms: Excuse From Work Patient Portal
[2019-05-12] MEDS ORDERED: TORADOL 30 MG VIAL IVP ONE (08:26)
--- NOTE | 2019-05-12 08:26 | RAD ---
HISTORYDyspnea.STUDYCHEST, 1 VIEWCOMPARISONJanuary 2019FINDINGSThe trachea is midline. The cardiac silhouette is enlarged. There are improving but residual perihilar and lower lobe parenchymal disease/densities. No other changes from prior seen. The bony thorax is unremarkable.IMPRESSIONImproving perihilar and lower lobe parenchymal densities/disease. Cardiomegaly. Findings can be seen with edema or infection. Please correlate medically. No other cardiopulmonary changes from prior appreciated.Electronically signed by: TIA ABDALLA III (May 12, 2019 08:25:04)
[2019-05-12] MEDS ORDERED: TORADOL 30 MG VIAL ONE (08:28)
[2019-05-12 08:36] LABS: BLOOD UREA NITROGEN 14 mg/dL (7-18); CARBON DIOXIDE 25.1 mmol/L (21-32); CHLORIDE 104 mmol/L (98-107); COR NA(FOR HYPERGLY) 138 mmol/L (136-145); CREATININE 1.43 mg/dL (0.70-1.30); SODIUM 137 mmol/L (136-145); TROPONIN I 0.18 ng/mL (0-1.5); eGFR NON BLACK RACES 56 (>60)
[2019-05-12 08:40] LABS: ALANINE AMINOTRANSFERASE 76 Units/L (12-78); ALBUMIN 3.2 g/dL (3.4-5.0); ALKALINE PHOSPHATASE 93 Units/L (46-116); ASPARTATE AMINO TRANSFERASE 56 Units/L (15-37); CKMB % 1.2 % (<4); COR CA(FOR HYPOALB) 9.6 mg/dL (8.5-10.1); CREATINE KINASE 89 Units/L (39-308); CREATINE KINASE MB 1.1 ng/mL (0-4.0); TOTAL PROTEIN 7.8 g/dL (6.4-8.2)
[2019-05-12 08:49] LABS: STREP A BY PCR NOT DETECTED (NOT DETECT)
[2019-05-12] MEDS ORDERED: LASIX IVP ONE ×2 (09:22→09:29)
[2019-05-12 09:55] LABS: ABG ALLEN TEST POS; ABG BASE EXCESS -0.3 mmol/L (-2.0-2.0); ABG HCO3 22.1 mmol/L (22-26)
[2019-05-12] MEDS ORDERED: FORTAZ or TAZICEF VIAL INJ 1 G in NS 100 ML IV + SPIKE MINIBAG* 100 ML IV ONE ×2 (10:16→10:28)
[2019-05-12] MEDS ORDERED: NS 100 ML IV 100 ML IV ONE ×2 (10:18→15:08)
[2019-05-12] MEDS ORDERED: FORTAZ or TAZICEF VIAL INJ ONE (10:18)
[2019-05-12] MEDS ORDERED: NS 250 ML IV 250 ML IV ONE ×2 (10:20→13:13)
--- NOTE | 2019-05-12 10:30 | CT ---
HISTORY: [Dyspnea and shortness of breath].Study: CT angiogram of the chest with contrast, using the CT PE protocol. For this CT pulmonary embolism angiographic protocol, 3D reformats / maximum intensity projections (MIPs) of the pulmonary arterial circulation and pulmonary arteries was performed.Comparison: [Chest radiograph dated May 12, 2019].Technique: Multiple CT angiographic axial images of the chest were obtained from the thoracic inlet to the upper abdomen after the administration of IV contrast. For this CT pulmonary embolism angiographic protocol, 3D reformats / maximum intensity projections (MIPs) of the pulmonary arterial circulation and pulmonary arteries was performed.FINDINGS:The thoracic inlet is unremarkable appearance. Right apical bullous disease is observed. There are hazy ground-glass changes seen throughout the RUL, LAKESHIA, lingula, and in both lung bases which can be seen with an atypical infection/inflammation or associated edema. The heart is moderately enlarged. There is no evidence for pericardial effusion. The aorta is non aneurysmal but is not opacified with contrast. Thus common any evidence for acute aortic pathology or an aortic dissection cannot be excluded on the basis of this examination. There is a small right basilar pleural effusion also observed. There is a 4 mm right midlung zone nodule. This could be followed up with repeat chest CT imaging in 6 months for assurance. There are tiny filling defects seen within the subsegmental pulmonary arteries to the right middle lobe which would be compatible with small pulmonary emboli. No other pulmonary emboli are seen on examination. There is abnormal right hilar and left hilar adenopathy with prominent lymphoid tissue extending into the infrahilar regions bilaterally. These nodes may be reactive in nature. No other acute cardiopulmonary process is seen. No acute upper abdominal abnormality is observed. No acute fracture or lytic bony lesion is observed. There is a small fatty containing lipoma seen within the left upper back soft tissues which measures 5.6 x 1.9 cm.IMPRESSION:Tiny intraluminal/intra-arterial filling defects seen within the subsegmental pulmonary arteries to the right middle lobe which would be compatible with small subsegmental pulmonary emboli within the right middle lobe pulmonary branch arteries.Hazy and patchy ground-glass changes seen throughout the RUL, LAKESHIA, lingula, and in both lung bases which can be seen with an atypical infection/inflammation or associated CHF/pulmonary edema. Small right basilar pleural effusion also seen.4 mm right midlung zone nodule. This could be followed up with repeat chest CT imaging in 6 months for assurance.No other pulmonary emboli are seen on examination.Abnormal right hilar and left hilar adenopathy with prominent lymphoid tissue extending into the infrahilar regions bilaterally. These nodes may be reactive in nature but this should be followed up to ensure complete resolution.Electronically signed by: TIA ABDALLA III (May 12, 2019 10:29:04)
[2019-05-12 10:36] LABS: CKMB % 1.7 % (<4); TROPONIN I 0.18 ng/mL (0-1.5)
[2019-05-12] MEDS ORDERED: ATIVAN INJ 2 MG VIAL IVP ONE (10:39)
[2019-05-12] MEDS ORDERED: ATIVAN INJ 2 MG VIAL ONE (10:46)
[2019-05-12] MEDS ORDERED: LOVENOX INJ 80 MG SYR SC ONE (11:48)
[2019-05-12 12:00] LABS: BILIRUBIN,URINE NEGATIVE (NEGATIVE); BLOOD/HEMOGLOBIN,URINE NEGATIVE (NEGATIVE); GLUCOSE, URINE NEGATIVE (NEGATIVE); KETONES,URINE NEGATIVE (NEGATIVE); LEUKOCYTE ESTERASE ,URINE NEGATIVE (NEGATIVE); NITRITES,URINE NEGATIVE (NEGATIVE); PROTEIN,URINE NEGATIVE (NEGATIVE); UROBILINOGEN,URINE NORMAL (NORMAL)
[2019-05-12] MEDS ORDERED: LOVENOX INJ 80 MG SYR SC SCH ×2 (12:00→14:00)
[2019-05-12 12:12] LABS: APPEARANCE,URINE CLEAR (CLEAR); COLOR,URINE YELLOW (YELLOW)
[2019-05-12] MEDS: FORTAZ or TAZICEF VIAL INJ 1 G in NS 100 ML IV + SPIKE MINIBAG* 100 ML IV SCH ×3 (14:03→21:09)
[2019-05-12] MEDS: NS 1000 ML 1,000 ML IV SCH (14:09)
[2019-05-12] MEDS: LEVAQUIN PREMIX IV 750 MG 750 MG/150 ML BAG IV SCH (14:12)
[2019-05-12] MEDS ORDERED: KLONOPIN TAB 1 MG ONE (14:37)
[2019-05-12] MEDS: KLONOPIN TAB 1 MG PO SCH ×2 (14:43→21:08)
[2019-05-12] MEDS ORDERED: CARDIZEM INJ 125 MG VIAL ONE (15:08)
[2019-05-12] MEDS ORDERED: CARDIZEM INJ 50 MG VIAL IVP ONE (15:17)
[2019-05-12] MEDS ORDERED: CARDIZEM INJ 50 MG VIAL ONE (15:18)
[2019-05-12] MEDS: CARDIZEM INJ 125 MG VIAL 125 MG in NS 100 ML IV 100 ML IV PRN ×2 (15:29→16:24)
[2019-05-12 17:16] LABS: CKMB % 1.5 % (<4); CREATINE KINASE 66 Units/L (39-308); CREATINE KINASE MB < 1.0 ng/mL (0-4.0); TROPONIN I 0.16 ng/mL (0-1.5)
[2019-05-12] MEDS: XOPENEX 1.25 MG/3 ML NEBULE NEB SCH ×2 (17:41→20:15)
[2019-05-12] MEDS ORDERED: SALINE 3% 15 ML NEB TX NEB ONE (20:15)
[2019-05-12] MEDS: ZESTRIL TAB 5 MG PO SCH (21:08)
[2019-05-12] MEDS: COREG TAB 3.125 MG PO SCH (21:08)
[2019-05-12] MEDS: LOVENOX INJ 80 MG SYR SC SCH (21:09)
[2019-05-12 22:18] LABS: CKMB % 1.8 % (<4); TROPONIN I 0.15 ng/mL (0-1.5)
[2019-05-13] MEDS: NS 1000 ML 1,000 ML IV SCH (03:26)
[2019-05-13] MEDS: FORTAZ or TAZICEF VIAL INJ 1 G in NS 100 ML IV + SPIKE MINIBAG* 100 ML IV SCH ×3 (05:27→21:01)
[2019-05-13 06:17] LABS: ALANINE AMINOTRANSFERASE 57 Units/L (12-78); ALBUMIN 2.8 g/dL (3.4-5.0); ALKALINE PHOSPHATASE 76 Units/L (46-116); ASPARTATE AMINO TRANSFERASE 30 Units/L (15-37); BLOOD UREA NITROGEN 16 mg/dL (7-18); CALCIUM 8.4 mg/dL (8.5-10.1); CARBON DIOXIDE 23.2 mmol/L (21-32); CHLORIDE 106 mmol/L (98-107); CHOL/HDL RATIO 5.5 (0.0-5.0); CHOLESTEROL 122 mg/dL (0-200); COR CA(FOR HYPOALB) 9.4 mg/dL (8.5-10.1); CREATININE 1.37 mg/dL (0.70-1.30); HDL CHOLESTEROL 22 mg/dL (40-60); MAGNESIUM 1.8 mg/dL (1.7-2.9); SODIUM 139 mmol/L (136-145); TOTAL PROTEIN 6.9 g/dL (6.4-8.2); TRIGLYCERIDES 85 mg/dL (0-150); eGFR NON BLACK RACES 58 (>60)
[2019-05-13 06:24] LABS: BASOPHILS # (AUTO) 0.1 X10^3/uL (0.0-0.1); BASOPHILS % (AUTO) 1.1 % (0.2-1.0); EOSINOPHILS # (AUTO) 0.2 x10^3/uL (0.0-0.2); EOSINOPHILS % (AUTO) 3.4 % (0.9-2.9); HEMATOCRIT 40.4 % (42.0-54.0); HEMOGLOBIN 13.8 g/dL (13.5-18.0); LYMPHOCYTES # (AUTO) 2.9 X10^3/uL (1.3-2.9); LYMPHOCYTES % (AUTO) 44.4 % (21.0-51.0); MEAN CORPUSCULAR HEMOGLOBIN 29.8 pg (27.0-34.0); MEAN CORPUSCULAR VOLUME 87.8 fL (80.0-100.0); MEAN PLATELET VOLUME 8.5 fL (7.4-11.0); MONOCYTES # (AUTO) 0.5 x10^3/uL (0.3-0.8); MONOCYTES % (AUTO) 7.5 % (0.0-13.0); NEUTROPHILS # (AUTO) 2.8 x10^3/uL (2.2-4.8); NEUTROPHILS % (AUTO) 43.6 % (42.0-75.0); PLATELET COUNT 236 X10^3/uL (150.0-450.0); RED BLOOD COUNT 4.61 X10^6/uL (4.7-6.0); WHITE BLOOD COUNT 6.5 X10^3/uL (3.6-10.0)
--- NOTE | 2019-05-13 07:22 | RAD ---
HISTORYShortness ofSTUDYCHEST, 1 VIEWCOMPARISONbruary 2019FINDINGSThe heart is enlarged. No congestive heart failure is noted. Right basilar infiltrate is unchanged. The remainder of the lung campbell are clear. No pleural effusions are identified. Bony thorax is unremarkable.IMPRESSIONContinued cardiomegaly without congestive heart failureRight basilar infiltrate unchangedElectronically signed by: KIARA BARCENAS (May 13, 2019 07:20:33)
[2019-05-13] MEDS: LOVENOX INJ 80 MG SYR SC SCH ×2 (08:12→20:50)
[2019-05-13] MEDS: LEVAQUIN PREMIX IV 750 MG 750 MG/150 ML BAG IV SCH (08:12)
[2019-05-13] MEDS: ASPIRIN EC 81 MG PO SCH (08:13)
[2019-05-13] MEDS: COREG TAB 3.125 MG PO SCH ×2 (08:14→20:48)
[2019-05-13] MEDS: ZESTRIL TAB 5 MG PO SCH ×2 (08:14→20:49)
[2019-05-13] MEDS: KLONOPIN TAB 1 MG PO SCH ×2 (08:14→20:48)
[2019-05-13] MEDS: XOPENEX 1.25 MG/3 ML NEBULE NEB SCH ×4 (08:42→20:40)
[2019-05-13] MEDS: ZOLOFT PO SCH ×2 (11:21→20:50)
--- NOTE | 2019-05-13 11:28 | DR.H&P ---
H&P - History & Physical for Day of: H&P Date: 05/12/19 - Chief Complaint Chief Complaint: COUGH, SOB, ANXIETY - History of Present Illness History of Present Illness: IS A 48 YEAR OLD PATIENT OF OURS WHO PRESENTED TO THE ER WITH REPORTS OF SHORTNESS OF BREATH, ANXIETY, AND COUGH. PATIENT REPORTS THAT SYMPTOMS STARTED TWO DAYS AGO AND HAVE PROGRESSIVELY GOTTEN WORSE. HE DOES HAVE A HISTORY OF CHF, BUT REPORTS THAT HE HAS NEVER HAD AN EPISODE THIS SEVERE. ON ARRIVAL TO THE ER, VITALS WERE 97.2-108-20-97%-143/97. LABS WERE OBTAINED. ABNORMAL LAB VALUES INCLUDE THE FOLLOWING: D-DIMER 546, CREATININE 1.43, GLUCOSE 126, AST 56, BNP 1580, ALBUMIN 3.2, GLOBULIN 4.6, LACTIC ACID 2.3. CARDIAC ENZYMES WITHIN NORMAL LIMITS. BLOOD CULTURES WERE OBTAINED. ABNORMAL LAB VALUES INCLUDE THE FOLLOWING: PH 7.490, PC02 29.0, P02 65.0, HC03 22.1, 02 SATURATION 94.0. TOXICOLOGY IS POSITIVE FOR AMPHETAMINES AND COCAINE. INFLUENZA NEGATIVE. BLOOD CULTURES WERE SET UP. A CHEST XRAY WAS OBTAINED AND REVEALED: Improving perihilar and lower lobe parenchymal densities/disease. Cardiomegaly. Findings can be seen with edema or infection. Please correlate medically. No other cardiopulmonary changes from prior appreciated. EKG REVEALED SINUS TACHYCARDIA WITH HR 107. A CHEST CTA WAS OBTAINED AND REVEALED: Tiny intraluminal/intra-arterial filling defects seen within the subsegmental pulmonary arteries to the right middle lobe which would be compatible with small subsegmental pulmonary emboli within the right middle lobe pulmonary branch arteries. Hazy and patchy ground-glass changes seen throughout the RUL, LAKESHIA, lingula, and in both lung bases which can be seen with an atypical infection/inflammation or associated CHF/pulmonary edema. Small right basilar pleural effusion also seen. 4 mm right midlung zone nodule. This could be followed up with repeat chest CT imaging in 6 months for assurance. No other pulmonary emboli are seen on examination. Abnormal right hilar and left hilar adenopathy with prominent lymphoid tissue extending into the infrahilar regions bilaterally. These nodes may be reactive in nature but this should be followed up to ensure complete resolution. HE WAS STARTED ON LOVENOX 80MG SC DAILY, ATIVAN 2MG IV ONCE, FORTAZ 1G IV X 1, AND TORADOL 30MG IV X 1. HE WAS ADMITTED FOR FURTHER EVALUATION AND TREATMENT OF CHF, PNEUMONIA, PULMONARY EMBOLI, AND RESPIRATORY DISTRESS. AFTER ADMISSION, HEART RATE REMAINED IN THE 140S-150S. STAFF REPORTS THAT HE HAS BEEN AGITATED. HE WAS STARED ON A CARDIZEM DRIP, FORTAZ 1G IV Q8H, LEVAQUIN 750MG IV DAILY, NS AT KVO, LOVENOX 80MG SC BID, KLONOPIN 1MG PO BID, AND RESPIRATORY TX. TODAY, WE WILL ADD COUMADIN 5MG PO HS, ZOLOFT 50MG PO BID, AND OBTAIN AN ECHO. OTHERWISE, WE WILL FOLLOW UP WITH AM LABS AND CHEST XRAY AND CONTINUE TO MONITOR. - Past Medical History Past Medical History: Angina, Hypertension, Headaches, CHF - Past Surgical History Surgical History: Other - Family History Family Medical History: Diabetes Mellitus, Cancer, [place], Sudden Cardiac , Hypertension - Social History Does patient currently use any type of tobacco product: Yes Have you used tobacco products in the last 12 months: Yes Type of Tobacco Use: Cigarettes Does any household member use tobacco: No Alcohol Use: DAILY Drug Use: Prescription Drugs, Cocaine, Marijuana - Medications Home Medications: No Known Drug Allergies Allergy (Verified 05/12/19 07:43) - Review of Systems Constitutional: Weakness Eyes: No Symptoms Reported ENT: No Symptoms Reported Respiratory: See HPI, Cough, Shortness of Breath, SOB with Excertion, Wheezing Cardiovascular: Chest Pain, See HPI Gastrointestinal: No Symptoms Reported Genitourinary: No Symptoms Reported Musculoskeletal: No Symptoms Reported Skin: No Symptoms Reported Neurological: Weakness - Physical Exam Vital Signs: Temperature 98.2 F Pulse Rate 93 Respiratory Rate 21 Blood Pressure [Left Arm] 110/93 Blood Pressure 117/75 O2 Sat by Pulse Oximetry 92 Oriented: Normal Eyes: Normal Ear: Normal Nose: Normal Throat: Normal Respiratory: Diminished Throughout, Wheezes Throughout Cardiovascular: Tachycardia. negative: S3, S4, Murmur : Normal Auscultation: Bowel Sounds: Normal Palpation: Normal Tenderness: Normal Skin: Normal Musculoskeletal: Normal Psychiatric: Anxiety, Agitation Mood Description: Anxious Affect: Anxious Speech Pattern: Clear - Assessment/Plan (1) Pneumonia Qualifiers: Pneumonia type: due to unspecified organism Laterality: bilateral Lung location: unspecified part of lung Qualified Code(s): J18.9 - Pneumonia, unspecified organism Status: Acute Plan: IV FORTAZ, IV LEVAQUIN, RESPIRATORY TX, SUPPLEMENTAL OXYGEN, CONTINUE TO MONITOR (2) CHF (congestive heart failure) Qualifiers: Heart failure type: unspecified Heart failure chronicity: acute on chronic Qualified Code(s): I50.9 - Heart failure, unspecified Status: Acute (3) Pulmonary emboli Qualifiers: Pulmonary embolism type: unspecified Chronicity: acute Acute cor pulmonale presence: without acute cor pulmonale Qualified Code(s): I26.99 - Other pulmonary embolism without acute cor pulmonale Status: Acute Plan: LOVENOX 80MG SC BID, CONTINUE TO MONITOR (4) Anxiety Status: Acute (5) Chest pain Qualifiers: Chest pain type: unspecified Qualified Code(s): R07.9 - Chest pain, unspecified Status: Acute (6) Dyspnea Qualifiers: Dyspnea type: acute respiratory distress Qualified Code(s): R06.03 - Acute respiratory distress Status: Acute - Allergies Allergies/Adverse Reactions: Allergies Allergy/AdvReac Type Severity Reaction Status Date / Time No Known Drug Allergies Allergy Verified 05/12/19 07:43
[2019-05-13] MEDS ORDERED: COUMADIN TAB 5 MG PO SCH (21:00)
[2019-05-14] MEDS: FORTAZ or TAZICEF VIAL INJ 1 G in NS 100 ML IV + SPIKE MINIBAG* 100 ML IV SCH (05:01)
[2019-05-14] MEDS: NS 1000 ML 1,000 ML IV SCH ×2 (05:02→09:19)
[2019-05-14 05:47] LABS: BASOPHILS # (AUTO) 0.1 X10^3/uL (0.0-0.1); BASOPHILS % (AUTO) 1.5 % (0.2-1.0); EOSINOPHILS # (AUTO) 0.3 x10^3/uL (0.0-0.2); EOSINOPHILS % (AUTO) 3.6 % (0.9-2.9); HEMATOCRIT 40.2 % (42.0-54.0); HEMOGLOBIN 13.8 g/dL (13.5-18.0); LYMPHOCYTES # (AUTO) 2.7 X10^3/uL (1.3-2.9); MEAN CORPUSCULAR HEMOGLOBIN 30.4 pg (27.0-34.0); MEAN CORPUSCULAR HGB CONC 34.3 g/dL (33.0-35.0); MEAN CORPUSCULAR VOLUME 88.7 fL (80.0-100.0); MONOCYTES # (AUTO) 0.7 x10^3/uL (0.3-0.8); MONOCYTES % (AUTO) 8.9 % (0.0-13.0); NEUTROPHILS # (AUTO) 3.7 x10^3/uL (2.2-4.8); PLATELET COUNT 272 X10^3/uL (150.0-450.0); RED BLOOD COUNT 4.53 X10^6/uL (4.7-6.0); RED CELL DISTRIBUTION WIDTH 13.9 % (11.6-16.5); WHITE BLOOD COUNT 7.4 X10^3/uL (3.6-10.0)
[2019-05-14 06:04] LABS: ALANINE AMINOTRANSFERASE 56 Units/L (12-78); ALBUMIN 2.7 g/dL (3.4-5.0); ALKALINE PHOSPHATASE 74 Units/L (46-116); ASPARTATE AMINO TRANSFERASE 27 Units/L (15-37); BLOOD UREA NITROGEN 14 mg/dL (7-18); CALCIUM 8.4 mg/dL (8.5-10.1); CARBON DIOXIDE 23.2 mmol/L (21-32); CHLORIDE 107 mmol/L (98-107); COR CA(FOR HYPOALB) 9.4 mg/dL (8.5-10.1); COR NA(FOR HYPERGLY) 140 mmol/L (136-145); CREATININE 1.35 mg/dL (0.70-1.30); SODIUM 140 mmol/L (136-145); TOTAL PROTEIN 6.9 g/dL (6.4-8.2); eGFR NON BLACK RACES 59 (>60)
--- NOTE | 2019-05-14 06:22 | RAD ---
HISTORYShortness of breathSTUDYCHEST, 1 VIEWCOMPARISONFebruary 2019FINDINGSThe heart is enlarged. No definite congestive heart failure is noted. Right basilar infiltrate continues to improve. Remainder of the lung campbell are clear. No pleural effusions are identified. Bony thorax is unremarkable.IMPRESSIONContinued improvement right basilar lung infiltrateCardiomegaly without congestive heart failure, stableElectronically signed by: KIARA BARCENAS (May 14, 2019 06:21:26)
[2019-05-14] MEDS ORDERED: POTASSIUM CHLORIDE LIQ 20 MEQ UDC PO PRN (08:46)
[2019-05-14] MEDS ORDERED: K-DUR TAB 20 MEQ PO PRN (08:46)
[2019-05-14] MEDS ORDERED: K-RIDER 10 MEQ/NS 100 ML 10 MEQ/100 ML BAG IV PRN (08:46)
[2019-05-14] MEDS ORDERED: POTASSIUM CHL 60 MEQ/NS 0.45% 500 ML IV PRN (08:46)
[2019-05-14] MEDS ORDERED: KLOR-CON PO PRN (08:46)
[2019-05-14] MEDS ORDERED: POTASSIUM CHL 40 MEQ/NS 0.45% 500 ML IV PRN (08:46)
[2019-05-14] MEDS ORDERED: MAGNESIUM SULFATE 1 GRAM/100 mL PREMIX 1 GM/100 ML BAG IV PRN (08:46)
[2019-05-14] MEDS ORDERED: MICRO K EXTEN CAP 10 MEQ PO PRN (08:46)
[2019-05-14] MEDS: XOPENEX 1.25 MG/3 ML NEBULE NEB SCH (08:51)
[2019-05-14] MEDS: ASPIRIN EC 81 MG PO SCH (09:19)
[2019-05-14] MEDS: COREG TAB 3.125 MG PO SCH (09:21)
[2019-05-14] MEDS: KLONOPIN TAB 1 MG PO SCH (09:21)
[2019-05-14] MEDS: ZOLOFT PO SCH (09:21)
[2019-05-14] MEDS: LOVENOX INJ 80 MG SYR SC SCH (09:21)
[2019-05-14] MEDS: ZESTRIL TAB 5 MG PO SCH (09:21)
[2019-05-14] MEDS: LEVAQUIN PREMIX IV 750 MG 750 MG/150 ML BAG IV SCH (09:24)
[2019-05-14 11:29] VITALS: BP 133/87
== END 2019-05-14 11:25 | disposition home or self-care (01) | DRG 193 ==
LOC: ER 07:34 → ICU 12:08
PROVIDERS: ADMIT Internal Medicine; ATTEND Internal Medicine
DX: F14.90 Cocaine use, unspecified, uncomplicated; Z79.01 Long term (current) use of anticoagulants; R94.31 Abnormal electrocardiogram [ECG] [EKG]; F41.8 Other specified anxiety disorders; I50.9 Heart failure, unspecified; R06.03 Acute respiratory distress; J18.9 Pneumonia, unspecified organism; I26.99 Other pulmonary embolism without acute cor pulmonale; F15.90 Other stimulant use, unspecified, uncomplicated; R07.89 Other chest pain
CPT/HCPCS: 36415; 36600; 71010; 71045; 71275; 80053; 80061; 80307; 81003; 82550; 82553; 82803; 83605; 83735; 83880; 84484; 85025; 85378; 85610; 85730; 87040; 87502; 87651; 93005; 93306; 94640; 94762; 96365; 96372; 96374; 96375; 99285; A4216; A4222; J0713; J1650; J1885; J1940; J1956; J2060; J3490; J7030; J7050

== ENCOUNTER 2021-03-25 07:50 | Observation (INO) ==
[2021-03-25] MEDS ORDERED: ASPIRIN 81 MG CHEWTAB PO ONE (08:11)
--- NOTE | 2021-03-25 08:19 | DR.CP ---
HPI Time Seen Time Seen by Provider: 03/25/21 08:07 PCP Primary Care Physician: Enrique Complaint Chief Complaint:: Pt c/o chest pain since last night. He describes this pain as " terrible heart burn." Pt states he took one nitro this am. He also reports vomiting but says it was " white frothy sputum." COVID-19 Coronavirus risk:travel/contact w/high risk person: No Has patient experienced Coronavirus symptoms: No Source History Provided: Patient Mode of Arrival Mode of Arrival: Wheelchair Timing Onset of Chief Complaint: 03/24/21 Location Chest Pain Radiation Location: None Associated Signs and Symptoms Associated Signs and Symptoms: Nausea/Vomiting PMH PMH Past Medical History: Yes Past Medical History: CHF, Coronary Artery Disease, Diabetes, GERD, Hypertension and [place] Past Surgical History: No Surgical History: Other Family History History of Family Medical Conditions: Yes Family Medical History: Diabetes Mellitus, Cancer, [place], Coronary Artery Disease, Heart Failure and Hypertension Social History Does patient currently use any type of tobacco product: Yes Have you used tobacco products in the last 12 months: Yes Type of Tobacco Use: Cigarettes Alcohol Use: None Do you use any recreational Drugs:: Yes (MARIJUANA, cocaine) Lives With: Family Lives Where: Home Travel Risk Coronavirus risk:travel/contact w/high risk person: No Has patient experienced Coronavirus symptoms: No Infectious screening In the last 2 months have you had wt loss of >10#?: NO Have you had fever, night sweats or hemotysis?: No Have you traveled outside the country in the last 6 months?: No Isolation: Standard PE Vitals Vitals: Temperature 97.8 F Pulse Rate 92 Respiratory Rate 22 Blood Pressure [Left Arm] 142/80 Blood Pressure 145/89 O2 Sat by Pulse Oximetry 99 ROR Labs Reviewed Result Diagrams: 03/25/21 08:20 03/25/21 08:20 Laboratory: WBC 5.9 X10^3/uL (3.6-10.0) 03/25/21 08:20 RBC 5.18 X10^6/uL (4.7-6.0) 03/25/21 08:20 Hgb 15.5 g/dL (13.5-18.0) 03/25/21 08:20 Hct 45.2 % (42.0-54.0) 03/25/21 08:20 MCV 87.2 fL (80.0-100.0) 03/25/21 08:20 MCH 30.0 pg (27.0-34.0) 03/25/21 08:20 MCHC 34.3 g/dL (33.0-35.0) 03/25/21 08:20 RDW 14.5 % (11.6-16.5) 03/25/21 08:20 Plt Count 245 X10^3/uL (150.0-450.0) 03/25/21 08:20 Plt Count Comment Adequate (ADEQUATE) 03/25/21 08:20 MPV 9.3 fL (7.4-11.0) 03/25/21 08:20 Neut % (Auto) 60.5 % (42.0-75.0) 03/25/21 08:20 Lymph % (Auto) 28.0 % (21.0-51.0) 03/25/21 08:20 [place] % (Auto) 8.1 % (0.0-13.0) 03/25/21 08:20 Eos % (Auto) 2.4 % (0.9-2.9) 03/25/21 08:20 Baso % (Auto) 1.0 % (0.2-1.0) 03/25/21 08:20 Neut # (Auto) 3.6 x10^3/uL (2.2-4.8) 03/25/21 08:20 Lymph # (Auto) 1.7 X10^3/uL (1.3-2.9) 03/25/21 08:20 [place] # (Auto) 0.5 x10^3/uL (0.3-0.8) 03/25/21 08:20 Eos # (Auto) 0.1 x10^3/uL (0.0-0.2) 03/25/21 08:20 Baso # (Auto) 0.1 X10^3/uL (0.0-0.1) 03/25/21 08:20 Absolute Nucleated RBC 0.3 /100WBC 03/25/21 08:20 Plt Morphology Comment Normal (NORMAL) 03/25/21 08:20 RBC Morphology Normal (NORMAL) 03/25/21 08:20 D-Dimer 0.79 ug/ml (0.0-0.57) H* 03/25/21 08:20 Sodium 135 mmol/L (136-145) L 03/25/21 08:20 Corrected Sodium 135 mmol/L (136-145) L 03/25/21 08:20 Potassium 3.7 mmol/L (3.5-5.1) 03/25/21 08:20 Chloride 101 mmol/L (98-107) 03/25/21 08:20 Carbon Dioxide 22.7 mmol/L (21-32) 03/25/21 08:20 BUN 13 mg/dL (7-18) 03/25/21 08:20 Creatinine 1.30 mg/dL (0.70-1.30) 03/25/21 08:20 Est GFR (MDRD) Af Amer > 60 (>60) 03/25/21 08:20 Est GFR (MDRD) Non-Af > 60 (>60) 03/25/21 08:20 Glucose 112 mg/dL (65-99) H 03/25/21 08:20 C-Peptide ng/ml Cancelled 03/25/21 08:20 Calcium 9.7 mg/dL (8.5-10.1) 03/25/21 08:20 Corrected Calcium TNP 03/25/21 08:20 Total Bilirubin 1.10 mg/dL (0.2-1.0) H 03/25/21 08:20 AST 17 Units/L (15-37) 03/25/21 08:20 ALT 22 Units/L (12-78) 03/25/21 08:20 Alkaline Phosphatase 77 Units/L (46-116) 03/25/21 08:20 Creatine Kinase 62 Units/L (39-308) 03/25/21 08:20 CK-MB (CK-2) < 1.0 ng/mL (0-4.0) 03/25/21 08:20 CK/CKMB % Calc 1.6 % (<4) 03/25/21 08:20 Troponin I 0.05 ng/mL (0-1.5) 03/25/21 08:20 B-Natriuretic Peptide 1160 pg/mL (0-79) H* 03/25/21 08:20 Total Protein 8.2 g/dL (6.4-8.2) 03/25/21 08:20 Albumin 3.7 g/dL (3.4-5.0) 03/25/21 08:20 Globulin 4.5 g/dL (2.5-4.5) 03/25/21 08:20 Albumin/Globulin Ratio 0.8 Ratio (1.1-2.1) L 03/25/21 08:20 Specimen Type Clean catch urine 03/25/21 09:12 Urine Color Yellow (YELLOW) 03/25/21 09:12 Urine Appearance Clear (CLEAR) 03/25/21 09:12 Urine pH 6.0 (5.0 - 8.0) 03/25/21 09:12 Ur Specific [place] 1.010 (1.000-1.030) 03/25/21 09:12 Urine Protein 1+ (NEGATIVE) 03/25/21 09:12 Urine Glucose (UA) Negative (NEGATIVE) 03/25/21 09:12 Urine Ketones Negative (NEGATIVE) 03/25/21 09:12 Urine Occult Blood Negative (NEGATIVE) 03/25/21 09:12 Urine Nitrite Negative (NEGATIVE) 03/25/21 09:12 Urine Bilirubin Negative (NEGATIVE) 03/25/21 09:12 Urine Urobilinogen Normal (NORMAL) 03/25/21 09:12 Ur Leukocyte Esterase Negative (NEGATIVE) 03/25/21 09:12 Urine RBC 0-2 /HPF (0-3) 03/25/21 09:12 Urine WBC 0-2 /HPF (0-5) 03/25/21 09:12 Ur Squamous Epith Cells Rare /HPF (NEGATIVE) 03/25/21 09:12 Urine Bacteria Negative /HPF (NEGATIVE) 03/25/21 09:12 Ur Culture Indicated? No/not indicated 03/25/21 09:12 Urine Opiates Screen Negative (NEG=<300) 03/25/21 09:12 Urine Methadone Screen Negative (NEG=<300) 03/25/21 09:12 Ur Barbiturates Screen Negative (NEG=<200) 03/25/21 09:12 Ur Phencyclidine Scrn Negative (NEG=<25) 03/25/21 09:12 Ur Amphetamines Screen Positive (NEG=<1000) 03/25/21 09:12 U Benzodiazepines Scrn Negative (NEG=<200) 03/25/21 09:12 Urine Cocaine Screen Positive (NEG=<300) 03/25/21 09:12 U Marijuana (THC) Screen Positive (NEG=<50) A 03/25/21 09:12 SARS-CoV-2 (PCR) Negative (NEGATIVE) 03/25/21 10:40 Influenza Type A (PCR) Negative (NEGATIVE) 03/25/21 10:40 Influenza Type B (PCR) Negative (NEGATIVE) 03/25/21 10:40 RSV (PCR) Negative (NEGATIVE) 03/25/21 10:40 Opioid Opioid Risk Tool Personal Hx of Substance Abuse: Illegal Drugs Age (Jose David box if 16-45): No History of Preadolescent Sexual Abuse: No Total: 0 Total Score Risk Category: Low Risk Copyright: Kush BETANCUR predicting aberrant behaviors Diagnosis Discharge Problem: Chest pain Qualifiers: Chest pain type: precordial pain Qualified Code(s): R07.2 - Precordial pain CHF (congestive heart failure) Qualifiers: Heart failure type: combined systolic and diastolic Heart failure chronicity: acute on chronic Qualified Code(s): I50.43 - Acute on chronic combined systolic (congestive) and diastolic (congestive) heart failure Instructions Forms: Precautions for COVID19 [facility] Patient Portal Social Distancing
[2021-03-25] MEDS ORDERED: ASPIRIN 81 MG CHEWTAB ONE (08:20)
[2021-03-25] MEDS ORDERED: PEPCID 20 MG IV PREMIX* 20 MG/50 ML BAG IV ONE (08:29)
[2021-03-25] MEDS ORDERED: PEPCID 20 MG IV PREMIX* 50 ML IV ONE (08:34)
--- NOTE | 2021-03-25 08:37 | RAD ---
HISTORYChest painSTUDYChest AP [id number] t is enlarged. It is increased in size since the prior examination. The shamir are prominent and slightly indistinct. Mild congestive heart failure in the form of early interstitial edema may be present. No alveolar edema, alveolar infiltrates, or pleural effusions are identified. Bony thorax is unremarkable.IMPRESSIONCardiomegaly with increase in heart size when compared to the prior examinationLikely mild congestive heart failureElectronically signed by: KIARA BARCENAS (Mar 25, 2021 08:36:01)
[2021-03-25 08:45] LABS: HEMATOCRIT 45.2 % (42.0-54.0); HEMOGLOBIN 15.5 g/dL (13.5-18.0); MEAN CORPUSCULAR HGB CONC 34.3 g/dL (33.0-35.0); MEAN PLATELET VOLUME 9.3 fL (7.4-11.0); MONOCYTES # (AUTO) 0.5 x10^3/uL (0.3-0.8); WHITE BLOOD COUNT 5.9 X10^3/uL (3.6-10.0)
[2021-03-25 08:50] LABS: BASOPHILS # (AUTO) 0.1 X10^3/uL (0.0-0.1); EOSINOPHILS # (AUTO) 0.1 x10^3/uL (0.0-0.2); EOSINOPHILS % (AUTO) 2.4 % (0.9-2.9); LYMPHOCYTES # (AUTO) 1.7 X10^3/uL (1.3-2.9); MEAN CORPUSCULAR VOLUME 87.2 fL (80.0-100.0); MONOCYTES % (AUTO) 8.1 % (0.0-13.0); NEUTROPHILS # (AUTO) 3.6 x10^3/uL (2.2-4.8); NEUTROPHILS % (AUTO) 60.5 % (42.0-75.0); PLATELET COUNT 245 X10^3/uL (150.0-450.0); RED BLOOD COUNT 5.18 X10^6/uL (4.7-6.0); RED CELL DISTRIBUTION WIDTH 14.5 % (11.6-16.5)
[2021-03-25 08:52] LABS: ALANINE AMINOTRANSFERASE 22 Units/L (12-78); ALBUMIN 3.7 g/dL (3.4-5.0); ALKALINE PHOSPHATASE 77 Units/L (46-116); ASPARTATE AMINO TRANSFERASE 17 Units/L (15-37); BLOOD UREA NITROGEN 13 mg/dL (7-18); CALCIUM 9.7 mg/dL (8.5-10.1); CARBON DIOXIDE 22.7 mmol/L (21-32); CHLORIDE 101 mmol/L (98-107); CKMB % 1.6 % (<4); COR NA(FOR HYPERGLY) 135 mmol/L (136-145); CREATINE KINASE 62 Units/L (39-308); CREATINE KINASE MB < 1.0 ng/mL (0-4.0); SODIUM 135 mmol/L (136-145); TOTAL PROTEIN 8.2 g/dL (6.4-8.2); TROPONIN I 0.05 ng/mL (0-1.5); eGFR NON BLACK RACES > 60 (>60)
[2021-03-25 09:24] LABS: BILIRUBIN,URINE NEGATIVE (NEGATIVE); BLOOD/HEMOGLOBIN,URINE NEGATIVE (NEGATIVE); GLUCOSE, URINE NEGATIVE (NEGATIVE); KETONES,URINE NEGATIVE (NEGATIVE); LEUKOCYTE ESTERASE ,URINE NEGATIVE (NEGATIVE); NITRITES,URINE NEGATIVE (NEGATIVE); PROTEIN,URINE 1+ (NEGATIVE); UROBILINOGEN,URINE NORMAL (NORMAL)
[2021-03-25] MEDS ORDERED: NS 100 ML IV 100 ML ONE (09:28)
[2021-03-25 09:37] LABS: PLATELET MORPHOLOGY COMMENT NORMAL (NORMAL)
[2021-03-25 09:39] LABS: APPEARANCE,URINE CLEAR (CLEAR); COLOR,URINE YELLOW (YELLOW)
[2021-03-25 09:40] LABS: BACTERIA,URINE NEGATIVE /HPF (NEGATIVE); RBC,URINE 0-2 /HPF (0-3); SQUAMOUS EPITHELIAL CELL,UR RARE /HPF (NEGATIVE)
--- NOTE | 2021-03-25 10:14 | CT ---
HISTORY:Chest pain, elevated D-dimerStudy: CTA chestComparison:Same day radiograph, chest CT 05/12/2019Technique: Multiple axial images of the chest were obtained after the administration of IV contrast. 3D reconstructions were performed utilizing radial maximum intensity projection imaging. Dose reduction techniques including Automated Exposure Control (AEC) and adjustment of mA and kV were utilized.Findings:Contrast opacification of the pulmonary arteries is adequate to the level of the segmental branches. No evidence of acute pulmonary emboli. There is mild cardiomegaly. The aorta appears normal in course and caliber. Chronic emphysematous changes are present with 5.3 centimeter bulla at the medial right lung apex. No infiltrate, effusion or pneumothorax. Airways are patient. Stable mildly enlarged hilar lymph nodes that are nonspecific.There is a subcutaneous lipoma the left upper back. The bony thorax is unremarkable. Incidental note of bilateral nephrolithiasis.IMPRESSION:Stable cardiomegaly and chronic emphysematous changes.Mildly enlarged hilar lymph nodes, also unchanged and nonspecific.No acute pulmonary embolism.Bilateral nephrolithiasis.Electronically signed by: WONG ACE (Mar 25, 2021 10:12:53)
[2021-03-25] MEDS ORDERED: LASIX IVP ONE (12:31)
[2021-03-25 14:01] VITALS: BMI 26.4
[2021-03-25] MEDS ORDERED: TORADOL 30 MG VIAL IVP PRN (16:24)
[2021-03-25] MEDS ORDERED: TORADOL 30 MG VIAL ONE (16:25)
[2021-03-25 20:13] LABS: CKMB % 1.6 % (<4); CREATINE KINASE 63 Units/L (39-308); CREATINE KINASE MB < 1.0 ng/mL (0-4.0); TROPONIN I 0.04 ng/mL (0-1.5)
[2021-03-26 01:34] LABS: EOSINOPHILS # (AUTO) 0.2 x10^3/uL (0.0-0.2); MEAN PLATELET VOLUME 8.9 fL (7.4-11.0); MONOCYTES # (AUTO) 0.6 x10^3/uL (0.3-0.8); NEUTROPHILS # (AUTO) 4.2 x10^3/uL (2.2-4.8); RED CELL DISTRIBUTION WIDTH 14.3 % (11.6-16.5)
[2021-03-26 01:44] LABS: BASOPHILS % (AUTO) 0.5 % (0.2-1.0); EOSINOPHILS % (AUTO) 3.2 % (0.9-2.9); HEMATOCRIT 46.9 % (42.0-54.0); LYMPHOCYTES # (AUTO) 1.9 X10^3/uL (1.3-2.9); MEAN CORPUSCULAR HEMOGLOBIN 29.8 pg (27.0-34.0); MEAN CORPUSCULAR HGB CONC 34.2 g/dL (33.0-35.0); MEAN CORPUSCULAR VOLUME 87.2 fL (80.0-100.0); MONOCYTES % (AUTO) 8.8 % (0.0-13.0); NEUTROPHILS % (AUTO) 60.5 % (42.0-75.0); PLATELET COUNT 240 X10^3/uL (150.0-450.0); RED BLOOD COUNT 5.38 X10^6/uL (4.7-6.0); WHITE BLOOD COUNT 6.9 X10^3/uL (3.6-10.0)
[2021-03-26 01:46] LABS: ALANINE AMINOTRANSFERASE 20 Units/L (12-78); ALBUMIN 3.6 g/dL (3.4-5.0); ALKALINE PHOSPHATASE 83 Units/L (46-116); ASPARTATE AMINO TRANSFERASE 16 Units/L (15-37); BLOOD UREA NITROGEN 19 mg/dL (7-18); CALCIUM 8.9 mg/dL (8.5-10.1); CARBON DIOXIDE 22.7 mmol/L (21-32); CHLORIDE 100 mmol/L (98-107); CHOL/HDL RATIO 3.8 (0.0-5.0); CHOLESTEROL 111 mg/dL (0-200); COR NA(FOR HYPERGLY) 136 mmol/L (136-145); CREATININE 1.42 mg/dL (0.70-1.30); HDL CHOLESTEROL 29 mg/dL (40-60); MAGNESIUM 1.7 mg/dL (1.7-2.9); SODIUM 135 mmol/L (136-145); TOTAL PROTEIN 8.3 g/dL (6.4-8.2); TRIGLYCERIDES 96 mg/dL (0-150); eGFR NON BLACK RACES 56 (>60)
[2021-03-26 01:55] LABS: CKMB % 1.6 % (<4); CREATINE KINASE 64 Units/L (39-308); CREATINE KINASE MB < 1.0 ng/mL (0-4.0); TROPONIN I 0.04 ng/mL (0-1.5)
[2021-03-26 08:00] VITALS: BP 128/76
== END 2021-03-26 11:00 | disposition left against medical advice (07) ==
LOC: MED/SURG 07:50 → ER 07:50 → MED/SURG 12:18
PROVIDERS: ADMIT Internal Medicine; ATTEND Internal Medicine
DX: I50.43 Acute on chronic combined systolic (congestive) and diastolic (congestive) heart failure; R94.31 Abnormal electrocardiogram [ECG] [EKG]; N20.0 Calculus of kidney; K21.9 Gastro-esophageal reflux disease without esophagitis; E11.65 Type 2 diabetes mellitus with hyperglycemia; F14.90 Cocaine use, unspecified, uncomplicated; I25.10 Atherosclerotic heart disease of native coronary artery without angina pectoris; E87.1 Hypo-osmolality and hyponatremia; Z53.29 Procedure and treatment not carried out because of patient's decision for other reasons; F15.90 Other stimulant use, unspecified, uncomplicated; Z20.822 Contact with and (suspected) exposure to COVID-19; F12.90 Cannabis use, unspecified, uncomplicated; R07.2 Precordial pain; I10 Essential (primary) hypertension

== ENCOUNTER 2021-04-17 13:48 | Inpatient (IN) ==
[2021-04-17 13:57] VITALS: BMI 29.0
[2021-04-17] MEDS ORDERED: ZOFRAN INJ 4 MG VIAL IVP ONE (14:26)
[2021-04-17] MEDS ORDERED: NS 1,000 ML IV 1,000 ML IV ONE (14:26)
[2021-04-17] MEDS ORDERED: NS 1,000 ML IV 1,000 ML ONE ×2 (14:27→17:31)
[2021-04-17] MEDS ORDERED: ZOFRAN INJ 4 MG VIAL ONE (14:27)
[2021-04-17] MEDS ORDERED: MORPHINE SULFATE INJ 2 MG INJ ONE ×3 (14:27→21:02)
[2021-04-17] MEDS: MORPHINE SULFATE INJ 2 MG INJ IVP ONE ×2 (14:30→15:00)
[2021-04-17 14:47] LABS: BILIRUBIN,URINE NEGATIVE (NEGATIVE); BLOOD/HEMOGLOBIN,URINE 1+ (NEGATIVE); GLUCOSE, URINE NEGATIVE (NEGATIVE); KETONES,URINE NEGATIVE (NEGATIVE); LEUKOCYTE ESTERASE ,URINE NEGATIVE (NEGATIVE); NITRITES,URINE NEGATIVE (NEGATIVE); PROTEIN,URINE 2+ (NEGATIVE); UROBILINOGEN,URINE NORMAL (NORMAL)
[2021-04-17 15:01] LABS: APPEARANCE,URINE CLEAR (CLEAR); BACTERIA,URINE NEGATIVE /HPF (NEGATIVE); COLOR,URINE YELLOW (YELLOW); RBC,URINE NONE SEEN /HPF (0-3); SQUAMOUS EPITHELIAL CELL,UR RARE /HPF (NEGATIVE)
[2021-04-17 15:02] LABS: HYALINE CASTS, URINE RARE /LPF (NEGATIVE)
--- NOTE | 2021-04-17 15:03 | DR.ABDMALE ---
HPI Time seen Time Seen by Provider: 04/17/21 14:15 HPI comment HPI Comment: Lower abd pain for the past six days which has progressively worsened and is now localized mainly to the lower abd; no dysuria, hematuria or freq; he had a temp of 103 on Monday as well as a cough and congestion and diarrhea; the fever and cough are resolved, but he continues to have loose stools and one episode n/v this morning; pain worsens with eating; he reports having covid "before there was covid" and has not received vaccine; he has not been exposed to covid as far as he knows. Complaint Chief Complaint:: PT C/O LOWER ABD PAIN THAT STARTED MONDAY AND HAS GOTTEN PROGRESSIVELY WORSE. PT REPORTS HE CANNOT EAT/DRINK WITHOUT SEVERE PAIN. COVID-19 Coronavirus risk:travel/contact w/high risk person: No Has patient experienced Coronavirus symptoms: No Mode of arrival Mode of Arrival: EMS Timing Onset of Chief Complaint: 04/12/21 PMH PMH Past Medical History: Yes Past Medical History: CHF, Coronary Artery Disease, Diabetes, GERD, Hypertension and [place] Past Surgical History: Yes Surgical History: Ortho Surgery and Other Family History History of Family Medical Conditions: Yes Family Medical History: Diabetes Mellitus and Hypertension Social History Alcohol Use: None Do you use any recreational Drugs:: No Lives Where: Home Travel Risk Coronavirus risk:travel/contact w/high risk person: No Has patient experienced Coronavirus symptoms: No Infectious screening In the last 2 months have you had wt loss of >10#?: NO Have you had fever, night sweats or hemotysis?: No Have you traveled outside the country in the last 6 months?: No Isolation: Standard ROS Review of Systems Eyes: No Symptoms Reported ENTM: No Symptoms Reported Cardiovascular: No Symptoms Reported Genitourinary: No Symptoms Reported Neurological: No Symptoms Reported Musculoskeletal: No Symptoms Reported Integumentary: No Symptoms Reported Hematologic/Lymphatic: No Symptoms Reported Endocrine: No Symptoms Reported Psychiatric: No Symptoms Reported PE Vital Signs Vital Signs: Temp Pulse Resp BP BP Pulse Ox 04/17/21 17:00 18 04/17/21 14:30 20 04/17/21 13:49 98.3 F 70 18 142/105 100 03/26/21 07:59 128/76 General Limitations: No Limitations General Appearance: Alert and In No Apparent Distress Head Head Exam: Normal Inspection Eyes Eye exam: Normal Appearance ENT ENT Exam: Normal Exam Neck Neck Exam: Normal Inspection Chest Chest Inspection: Normal Inspection Respiratory Respiratory Exam: Normal Lung Sounds Bilat Cardiovascular Cardiovascular Exam: Regular Rate and Normal Rhythm Abdominal Exam Abdominal Exam: Normal Inspection, Soft and Tenderness Abdominal Tenderness: Epigastrium and Suprapubic Rectal Rectal Exam: Deferred Back Back Exam: Normal Inspection Extremeties Extremities Exam: Normal Inspection Exam: Male: Deferred Neurologic Neurological Exam: Alert and Oriented X3 Psychiatric Psychiatric Exam: Normal Affect and Normal Mood Skin Skin Exam: Warm, Dry, Intact and Normal Color MDM Differential Diagnosis Differential Diagnosis: Bowel Obstruction, Diverticular disease, Gastroenteritis, Inflammatory BD, Ischemic Bowel and Urolithiasis COURSE Treatment Treatment: refused covid testing Reevaluation 1st: Improved (resting comfortably, stating pain improved "a little"; then starts grunting/groaning after discussion re: poss perforation) Consultation Called: 16:41 (Dr Tran accepts admission of pt to his service.) Critical Care Notes Total Time (mins): 30 Critical Diagnosis: diverticulitis with possible perforation, covid 19 Critical Interventions: evaluation of labs/xrays for definitive dx; fluids, abx, pain control, discussion with surgeon; additional discussion to get pt to agree to covid testing ROR Labs Reviewed Laboratory Results Reviewed?: Yes Result Diagrams: 04/17/21 14:48 04/17/21 14:48 Laboratory: WBC 7.8 X10^3/uL (3.6-10.0) 04/17/21 14:48 RBC 5.31 X10^6/uL (4.7-6.0) 04/17/21 14:48 Hgb 15.9 g/dL (13.5-18.0) 04/17/21 14:48 Hct 46.5 % (42.0-54.0) 04/17/21 14:48 MCV 87.7 fL (80.0-100.0) 04/17/21 14:48 MCH 30.0 pg (27.0-34.0) 04/17/21 14:48 MCHC 34.2 g/dL (33.0-35.0) 04/17/21 14:48 RDW 14.3 % (11.6-16.5) 04/17/21 14:48 Plt Count 192 X10^3/uL (150.0-450.0) 04/17/21 14:48 MPV 9.0 fL (7.4-11.0) 04/17/21 14:48 Neut % (Auto) 54.5 % (42.0-75.0) 04/17/21 14:48 Lymph % (Auto) 28.1 % (21.0-51.0) 04/17/21 14:48 [place] % (Auto) 16.5 % (0.0-13.0) H 04/17/21 14:48 Eos % (Auto) 0.3 % (0.9-2.9) L 04/17/21 14:48 Baso % (Auto) 0.6 % (0.2-1.0) 04/17/21 14:48 Neut # (Auto) 4.3 x10^3/uL (2.2-4.8) 04/17/21 14:48 Lymph # (Auto) 2.2 X10^3/uL (1.3-2.9) 04/17/21 14:48 [place] # (Auto) 1.3 x10^3/uL (0.3-0.8) H 04/17/21 14:48 Eos # (Auto) 0.0 x10^3/uL (0.0-0.2) 04/17/21 14:48 Baso # (Auto) 0.0 X10^3/uL (0.0-0.1) 04/17/21 14:48 Absolute Nucleated RBC 0.3 /100WBC 04/17/21 14:48 Sodium 140 mmol/L (136-145) 04/17/21 14:48 Corrected Sodium 140 mmol/L (136-145) 04/17/21 14:48 Potassium 3.6 mmol/L (3.5-5.1) 04/17/21 14:48 Chloride 104 mmol/L (98-107) 04/17/21 14:48 Carbon Dioxide 26.2 mmol/L (21-32) 04/17/21 14:48 BUN 11 mg/dL (7-18) 04/17/21 14:48 Creatinine 1.37 mg/dL (0.70-1.30) H 04/17/21 14:48 Est GFR (MDRD) Af Amer > 60 (>60) 04/17/21 14:48 Est GFR (MDRD) Non-Af 58 (>60) L 04/17/21 14:48 Glucose 112 mg/dL (65-99) H 04/17/21 14:48 Calcium 8.8 mg/dL (8.5-10.1) 04/17/21 14:48 Corrected Calcium TNP 04/17/21 14:48 Total Bilirubin 0.30 mg/dL (0.2-1.0) 04/17/21 14:48 AST 18 Units/L (15-37) 04/17/21 14:48 ALT 20 Units/L (12-78) 04/17/21 14:48 Alkaline Phosphatase 63 Units/L (46-116) 04/17/21 14:48 Total Protein 8.5 g/dL (6.4-8.2) H 04/17/21 14:48 Albumin 3.5 g/dL (3.4-5.0) 04/17/21 14:48 Globulin 5.0 g/dL (2.5-4.5) H 04/17/21 14:48 Albumin/Globulin Ratio 0.7 Ratio (1.1-2.1) L 04/17/21 14:48 Lipase 92 Units/L (73-393) 04/17/21 14:48 Specimen Type Clean catch urine 04/17/21 14:30 Urine Color Yellow (YELLOW) 04/17/21 14:30 Urine Appearance Clear (CLEAR) 04/17/21 14:30 Urine pH 5.0 (5.0 - 8.0) 04/17/21 14:30 Ur Specific [place] 1.020 (1.000-1.030) 04/17/21 14:30 Urine Protein 2+ (NEGATIVE) 04/17/21 14:30 Urine Glucose (UA) Negative (NEGATIVE) 04/17/21 14:30 Urine Ketones Negative (NEGATIVE) 04/17/21 14:30 Urine Occult Blood 1+ (NEGATIVE) 04/17/21 14:30 Urine Nitrite Negative (NEGATIVE) 04/17/21 14:30 Urine Bilirubin Negative (NEGATIVE) 04/17/21 14:30 Urine Urobilinogen Normal (NORMAL) 04/17/21 14:30 Ur Leukocyte Esterase Negative (NEGATIVE) 04/17/21 14:30 Urine RBC None seen /HPF (0-3) 04/17/21 14:30 Urine WBC None seen /HPF (0-5) 04/17/21 14:30 Ur Squamous Epith Cells Rare /HPF (NEGATIVE) 04/17/21 14:30 Urine Bacteria Negative /HPF (NEGATIVE) 04/17/21 14:30 Hyaline Casts Rare /LPF (NEGATIVE) 04/17/21 14:30 Urine Mucus Rare /HPF (NEGATIVE) 04/17/21 14:30 Ur Culture Indicated? No/not indicated 04/17/21 14:30 SARS CoV-2 RNA Rapid VIOLETA Positive (NEGATIVE) A 04/17/21 17:05 XRAY XRAY Interpreted by: Radiologist X-ray Results: ct abd/pelvis: Findings consistent with acute proximal sigmoid colon diverticulitis without evidence for peridiverticular abscess but with a small amount of extraluminal air adjacent to the colon suspicious for micro perforation. Immediate surgical evaluation is recommended. Opioid Opioid Risk Tool Personal Hx of Substance Abuse: Illegal Drugs Age (Jose David box if 16-45): No History of Preadolescent Sexual Abuse: No Total: 0 Total Score Risk Category: Low Risk Copyright: Currie predicting aberrant behaviors Diagnosis Discharge Problem: Diverticulitis, COVID-19 Hypertension Qualifiers: Hypertension type: primary hypertension Qualified Code(s): I10 - Essential ( primary) hypertension Instructions Forms: [facility] Patient Portal Social Distancing
[2021-04-17 15:08] LABS: BASOPHILS % (AUTO) 0.6 % (0.2-1.0); EOSINOPHILS % (AUTO) 0.3 % (0.9-2.9); HEMATOCRIT 46.5 % (42.0-54.0); HEMOGLOBIN 15.9 g/dL (13.5-18.0); LYMPHOCYTES # (AUTO) 2.2 X10^3/uL (1.3-2.9); LYMPHOCYTES % (AUTO) 28.1 % (21.0-51.0); MEAN CORPUSCULAR HGB CONC 34.2 g/dL (33.0-35.0); MEAN CORPUSCULAR VOLUME 87.7 fL (80.0-100.0); MONOCYTES # (AUTO) 1.3 x10^3/uL (0.3-0.8); MONOCYTES % (AUTO) 16.5 % (0.0-13.0); NEUTROPHILS # (AUTO) 4.3 x10^3/uL (2.2-4.8); NEUTROPHILS % (AUTO) 54.5 % (42.0-75.0); RED BLOOD COUNT 5.31 X10^6/uL (4.7-6.0); RED CELL DISTRIBUTION WIDTH 14.3 % (11.6-16.5); WHITE BLOOD COUNT 7.8 X10^3/uL (3.6-10.0)
[2021-04-17 15:33] LABS: ALANINE AMINOTRANSFERASE 20 Units/L (12-78); ALBUMIN 3.5 g/dL (3.4-5.0); ALKALINE PHOSPHATASE 63 Units/L (46-116); ASPARTATE AMINO TRANSFERASE 18 Units/L (15-37); BLOOD UREA NITROGEN 11 mg/dL (7-18); CALCIUM 8.8 mg/dL (8.5-10.1); CARBON DIOXIDE 26.2 mmol/L (21-32); CHLORIDE 104 mmol/L (98-107); COR NA(FOR HYPERGLY) 140 mmol/L (136-145); CREATININE 1.37 mg/dL (0.70-1.30); LIPASE 92 Units/L (73-393); SODIUM 140 mmol/L (136-145); TOTAL PROTEIN 8.5 g/dL (6.4-8.2); eGFR NON BLACK RACES 58 (>60)
[2021-04-17] MEDS ORDERED: NS 100 ML IV 100 ML ONE (15:42)
--- NOTE | 2021-04-17 16:21 | CT ---
HISTORYLower abdominal pain, nauseaSTUDYCT abdomen pelvis with contrastTechnique: Axial post-contrast images with coronal, and sagittal reformats. Dose reduction procedures were used with mA/kv adjusted for body size.COMPARISONNoneFINDINGSThe lung bases are clear. The heart is enlarged. The liver, spleen, adrenal glands, and pancreas are within normal limits. No opaque stones are present within the gallbladder. The kidneys are unobstructed and without masses. Renal cortical scarring is present on the left. No stones are identified in either kidney. No ureteral calculi are identified. The appendix is normal. Calcific atherosclerotic changes present in a nondilated abdominal aorta. No intraperitoneal or retroperitoneal lymphadenopathy of significance is identified. There are no findings suggestive of enteritis or colitis. However in the proximal sigmoid colon there is transmural thickening and marked pericolonic inflammation suggestive of acute diverticulitis. There are several bubbles of extraluminal air identified along the lateral wall of the proximal sigmoid colon best visualized on CT series 4 image 62, coronal series 621 and sagittal series 7, image 24. A micro perforation is suspected. No abscess is identified. No pelvic fluid or pelvic lymphadenopathy is identified. No bladder abnormality is identified. No lytic or blastic skeletal lesions of significance are identified.IMPRESSIONFindings consistent with acute proximal sigmoid colon diverticulitis without evidence for peridiverticular abscess but with a small amount of extraluminal air adjacent to the colon suspicious for micro perforation. Immediate surgical evaluation is recommended.Electronically signed by: KIARA BARCENAS (Apr 17, 2021 16:19:19)
[2021-04-17] MEDS ORDERED: MORPHINE SULFATE INJ 2 MG INJ IVP ONE (16:35)
[2021-04-17] MEDS ORDERED: ZOSYN VIAL 3.375 GRAMS 3.375 G in NS 100 ML IV + SPIKE MINIBAG* 100 ML IV ONE (16:35)
[2021-04-17] MEDS ORDERED: NS 100 ML IV + SPIKE MINIBAG* 100 ML IV ONE (16:46)
[2021-04-17] MEDS ORDERED: ZOSYN VIAL 3.375 GRAMS IV ONE (16:46)
[2021-04-17] MEDS ORDERED: ZOFRAN INJ 4 MG VIAL IVP PRN (16:53)
[2021-04-17] MEDS ORDERED: NS 1,000 ML IV 1,000 ML IV SCH (17:00)
[2021-04-17] MEDS ORDERED: CONSULT PHARMACY - ANTIBIOTIC XX SCH (17:00)
[2021-04-17] MEDS: NS 1,000 ML IV 1,000 ML IV SCH (17:30)
[2021-04-17] MEDS ORDERED: TYLENOL 325 MG TAB PO PRN (20:15)
[2021-04-17] MEDS ORDERED: TYLENOL 325 MG TAB PO ONE (20:33)
[2021-04-17] MEDS: MORPHINE SULFATE INJ 2 MG INJ IVP PRN (21:25)
[2021-04-18] MEDS: ZOSYN VIAL 3.375 GRAMS 3.375 G in NS 100 ML IV + SPIKE MINIBAG* 100 ML IV SCH ×4 (01:32→21:37)
[2021-04-18] MEDS ORDERED: NS 1,000 ML IV 1,000 ML ONE ×3 (02:33→19:44)
[2021-04-18] MEDS: NS 1,000 ML IV 1,000 ML IV SCH ×3 (02:38→19:44)
[2021-04-18] MEDS: MORPHINE SULFATE INJ 2 MG INJ IVP PRN ×2 (04:12→09:15)
[2021-04-18] MEDS ORDERED: MORPHINE SULFATE INJ 2 MG INJ ONE ×2 (04:12→19:40)
[2021-04-18] MEDS ORDERED: ZOFRAN INJ 4 MG VIAL ONE (04:13)
[2021-04-18] MEDS ORDERED: NS 100 ML IV + SPIKE MINIBAG* 100 ML IV ONE ×4 (05:18→19:41)
[2021-04-18] MEDS ORDERED: ZOSYN VIAL 3.375 GRAMS IV ONE ×3 (05:18→19:41)
[2021-04-18 05:44] LABS: BASOPHILS % (AUTO) 0.3 % (0.2-1.0); EOSINOPHILS % (AUTO) 0.1 % (0.9-2.9); HEMATOCRIT 42.2 % (42.0-54.0); HEMOGLOBIN 14.3 g/dL (13.5-18.0); LYMPHOCYTES # (AUTO) 1.6 X10^3/uL (1.3-2.9); LYMPHOCYTES % (AUTO) 17.9 % (21.0-51.0); MEAN CORPUSCULAR HEMOGLOBIN 29.5 pg (27.0-34.0); MEAN CORPUSCULAR HGB CONC 33.9 g/dL (33.0-35.0); MEAN PLATELET VOLUME 9.8 fL (7.4-11.0); MONOCYTES # (AUTO) 1.2 x10^3/uL (0.3-0.8); MONOCYTES % (AUTO) 13.6 % (0.0-13.0); NEUTROPHILS # (AUTO) 6.1 x10^3/uL (2.2-4.8); NEUTROPHILS % (AUTO) 68.1 % (42.0-75.0); RED BLOOD COUNT 4.85 X10^6/uL (4.7-6.0); RED CELL DISTRIBUTION WIDTH 14.7 % (11.6-16.5); WHITE BLOOD COUNT 8.9 X10^3/uL (3.6-10.0)
[2021-04-18 06:01] LABS: ALANINE AMINOTRANSFERASE 20 Units/L (12-78); ALBUMIN 2.9 g/dL (3.4-5.0); ALKALINE PHOSPHATASE 49 Units/L (46-116); ASPARTATE AMINO TRANSFERASE 19 Units/L (15-37); BLOOD UREA NITROGEN 10 mg/dL (7-18); CALCIUM 8.1 mg/dL (8.5-10.1); CARBON DIOXIDE 23.2 mmol/L (21-32); CHLORIDE 107 mmol/L (98-107); CREATININE 1.28 mg/dL (0.70-1.30); SODIUM 140 mmol/L (136-145); TOTAL PROTEIN 7.4 g/dL (6.4-8.2); eGFR NON BLACK RACES > 60 (>60)
[2021-04-18] MEDS ORDERED: MORPHINE SULFATE INJ 4 MG ONE (09:14)
--- NOTE | 2021-04-18 11:24 | DR.PROGNOT ---
Hospital Progress Notes - Progress Note for Day of: Progress Note Date: 04/18/21 - Chief Complaint Chief Complaint: c/o LLQ pain , mild nausea , no vomiting . Covid 19 was positive . no coughing , no SOB . CT showed acute diverticulitis with sealed perforation . afebrile today . - Past Medical Family Social History Past Med/Fam/Surg Hx: No changes since H&P Allergies: Allergies No Known Drug Allergies Allergy (Verified 04/17/21 13:49) - Review Of Systems ROS: No change since H&P - Vital Signs Vital Signs: Temperature 99.4 F Pulse Rate [Apical] 90 Pulse Rate 92 Respiratory Rate 20 Blood Pressure [Left Arm] 126/84 Blood Pressure 179/86 O2 Sat by Pulse Oximetry 98 - Physical Exam Oriented: Normal Eyes: Normal Ear: Normal, Left Throat: Normal Respiratory: Normal Cardiovascular: Normal : Normal GI:Auscultation: Decreased GI: Tenderness: LLQ (full abdomen with moderate to severe tenderness .. BS+ but hypoactive .) Speech Pattern: Clear, Appropriate - Laboratory and Diagnostics Result Diagrams: 04/18/21 04:14 04/18/21 04:14 Labs: Laboratory WBC 8.9 X10^3/uL (3.6-10.0) 04/18/21 04:14 RBC 4.85 X10^6/uL (4.7-6.0) 04/18/21 04:14 Hgb 14.3 g/dL (13.5-18.0) 04/18/21 04:14 Hct 42.2 % (42.0-54.0) 04/18/21 04:14 MCV 87.0 fL (80.0-100.0) 04/18/21 04:14 MCH 29.5 pg (27.0-34.0) 04/18/21 04:14 MCHC 33.9 g/dL (33.0-35.0) 04/18/21 04:14 RDW 14.7 % (11.6-16.5) 04/18/21 04:14 Plt Count 185 X10^3/uL (150.0-450.0) 04/18/21 04:14 MPV 9.8 fL (7.4-11.0) 04/18/21 04:14 Neut % (Auto) 68.1 % (42.0-75.0) 04/18/21 04:14 Lymph % (Auto) 17.9 % (21.0-51.0) L 04/18/21 04:14 [place] % (Auto) 13.6 % (0.0-13.0) H 04/18/21 04:14 Eos % (Auto) 0.1 % (0.9-2.9) L 04/18/21 04:14 Baso % (Auto) 0.3 % (0.2-1.0) 04/18/21 04:14 Neut # (Auto) 6.1 x10^3/uL (2.2-4.8) H 04/18/21 04:14 Lymph # (Auto) 1.6 X10^3/uL (1.3-2.9) 04/18/21 04:14 [place] # (Auto) 1.2 x10^3/uL (0.3-0.8) H 04/18/21 04:14 Eos # (Auto) 0.0 x10^3/uL (0.0-0.2) 04/18/21 04:14 Baso # (Auto) 0.0 X10^3/uL (0.0-0.1) 04/18/21 04:14 Absolute Nucleated RBC 0.0 /100WBC 04/18/21 04:14 Sodium 140 mmol/L (136-145) 04/18/21 04:14 Corrected Sodium TNP 04/18/21 04:14 Potassium 4.0 mmol/L (3.5-5.1) 04/18/21 04:14 Chloride 107 mmol/L (98-107) 04/18/21 04:14 Carbon Dioxide 23.2 mmol/L (21-32) 04/18/21 04:14 BUN 10 mg/dL (7-18) 04/18/21 04:14 Creatinine 1.28 mg/dL (0.70-1.30) 04/18/21 04:14 Est GFR (MDRD) Af Amer > 60 (>60) 04/18/21 04:14 Est GFR (MDRD) Non-Af > 60 (>60) 04/18/21 04:14 Glucose 93 mg/dL (65-99) 04/18/21 04:14 Calcium 8.1 mg/dL (8.5-10.1) L 04/18/21 04:14 Corrected Calcium 9.0 mg/dL (8.5-10.1) 04/18/21 04:14 Total Bilirubin 0.40 mg/dL (0.2-1.0) 04/18/21 04:14 AST 19 Units/L (15-37) 04/18/21 04:14 ALT 20 Units/L (12-78) 04/18/21 04:14 Alkaline Phosphatase 49 Units/L (46-116) 04/18/21 04:14 Total Protein 7.4 g/dL (6.4-8.2) 04/18/21 04:14 Albumin 2.9 g/dL (3.4-5.0) L 04/18/21 04:14 Globulin 4.5 g/dL (2.5-4.5) 04/18/21 04:14 Albumin/Globulin Ratio 0.6 Ratio (1.1-2.1) L 04/18/21 04:14 Lipase 92 Units/L (73-393) 04/17/21 14:48 Specimen Type Clean catch urine 04/17/21 14:30 Urine Color Yellow (YELLOW) 04/17/21 14:30 Urine Appearance Clear (CLEAR) 04/17/21 14:30 Urine pH 5.0 (5.0 - 8.0) 04/17/21 14:30 Ur Specific [place] 1.020 (1.000-1.030) 04/17/21 14:30 Urine Protein 2+ (NEGATIVE) 04/17/21 14:30 Urine Glucose (UA) Negative (NEGATIVE) 04/17/21 14:30 Urine Ketones Negative (NEGATIVE) 04/17/21 14:30 Urine Occult Blood 1+ (NEGATIVE) 04/17/21 14:30 Urine Nitrite Negative (NEGATIVE) 04/17/21 14:30 Urine Bilirubin Negative (NEGATIVE) 04/17/21 14:30 Urine Urobilinogen Normal (NORMAL) 04/17/21 14:30 Ur Leukocyte Esterase Negative (NEGATIVE) 04/17/21 14:30 Urine RBC None seen /HPF (0-3) 04/17/21 14:30 Urine WBC None seen /HPF (0-5) 04/17/21 14:30 Ur Squamous Epith Cells Rare /HPF (NEGATIVE) 04/17/21 14:30 Urine Bacteria Negative /HPF (NEGATIVE) 04/17/21 14:30 Hyaline Casts Rare /LPF (NEGATIVE) 04/17/21 14:30 Urine Mucus Rare /HPF (NEGATIVE) 04/17/21 14:30 Ur Culture Indicated? No/not indicated 04/17/21 14:30 SARS CoV-2 RNA Rapid VIOLETA Positive (NEGATIVE) A 04/17/21 17:05 - Assessment and Plan 1: acute diverticulitis with sealed perforation . positive Covid19 . same IV ABT , NPO except for water . medical f/u for COVID - Problem Patient Problems: Patient Problems Diverticulitis (Acute) K57.92 Hypertension (Acute) I10 COVID-19 (Acute) U07.1
[2021-04-18] MEDS ORDERED: SOLU-Medrol 125 MG VIAL IVP ONE (11:47)
[2021-04-18] MEDS ORDERED: VALIUM INJ IVP PRN (11:48)
[2021-04-18] MEDS ORDERED: SOLU-Medrol 125 MG VIAL ONE ×2 (12:34→19:40)
[2021-04-18] MEDS ORDERED: VIBRAMYCIN IV ONE ×2 (12:34→19:41)
[2021-04-18] MEDS ORDERED: FLAGYL IV PREMIX 500 MG BAG 500 MG/100 ML BAG IV ONE ×2 (12:35→19:41)
--- NOTE | 2021-04-18 12:38 | RAD ---
HISTORYCOVID-19 positiveSTUDYChest AP [id number]/2021FINDINGSThe heart is mildly enlarged. No congestive heart failure is noted. The shamir are normal. The lung campbell are clear. No pleural effusion or pneumothorax is identified. Bony thorax is unremarkable.IMPRESSIONMild cardiomegaly without congestive heart failureNo infiltratesElectronically signed by: KIARA BARCENAS (Apr 18, 2021 12:36:42)
[2021-04-18] MEDS ORDERED: VALIUM INJ ONE (12:39)
[2021-04-18] MEDS ORDERED: D5W 250 ML IV 250 ML IV ONE ×2 (12:44→19:58)
[2021-04-18] MEDS: VIBRAMYCIN 100 MG in D5W 250 ML IV 250 ML IV SCH ×2 (12:50→20:46)
[2021-04-18] MEDS: FLAGYL IV PREMIX 500 MG BAG 500 MG/100 ML BAG IV SCH ×2 (12:50→19:46)
[2021-04-18] MEDS: SOLU-Medrol 125 MG VIAL IVP SCH (21:03)
[2021-04-19] MEDS ORDERED: FLAGYL IV PREMIX 500 MG BAG 500 MG/100 ML BAG IV ONE (02:09)
[2021-04-19] MEDS: FLAGYL IV PREMIX 500 MG BAG 500 MG/100 ML BAG IV SCH (03:12)
[2021-04-19] MEDS: NS 1,000 ML IV 1,000 ML IV SCH (03:28)
[2021-04-19] MEDS ORDERED: SOLU-Medrol 125 MG VIAL ONE (03:46)
[2021-04-19] MEDS ORDERED: ZOSYN VIAL 3.375 GRAMS IV ONE (03:46)
[2021-04-19] MEDS ORDERED: NS 100 ML IV + SPIKE MINIBAG* 100 ML IV ONE (03:47)
[2021-04-19] MEDS: ZOSYN VIAL 3.375 GRAMS 3.375 G in NS 100 ML IV + SPIKE MINIBAG* 100 ML IV SCH (05:11)
[2021-04-19] MEDS: SOLU-Medrol 125 MG VIAL IVP SCH (05:11)
[2021-04-19] MEDS ORDERED: REMDESIVIR 200 MG in NS 250 ML IV 250 ML IV ONE (08:59)
[2021-04-19] MEDS ORDERED: LUVOX PO SCH (09:00)
[2021-04-19] MEDS ORDERED: PHARMACY CONSULT - IVERMECTIN XX SCH (09:00)
[2021-04-19 09:35] LABS: BASOPHILS % (AUTO) 0.4 % (0.2-1.0); HEMOGLOBIN 15.5 g/dL (13.5-18.0); LYMPHOCYTES # (AUTO) 1.2 X10^3/uL (1.3-2.9); LYMPHOCYTES % (AUTO) 14.7 % (21.0-51.0); MEAN CORPUSCULAR HEMOGLOBIN 29.8 pg (27.0-34.0); MEAN CORPUSCULAR HGB CONC 33.8 g/dL (33.0-35.0); MEAN CORPUSCULAR VOLUME 88.1 fL (80.0-100.0); MEAN PLATELET VOLUME 9.7 fL (7.4-11.0); MONOCYTES # (AUTO) 0.5 x10^3/uL (0.3-0.8); MONOCYTES % (AUTO) 6.4 % (0.0-13.0); NEUTROPHILS # (AUTO) 6.7 x10^3/uL (2.2-4.8); NEUTROPHILS % (AUTO) 78.5 % (42.0-75.0); RED BLOOD COUNT 5.22 X10^6/uL (4.7-6.0); RED CELL DISTRIBUTION WIDTH 14.6 % (11.6-16.5); WHITE BLOOD COUNT 8.5 X10^3/uL (3.6-10.0)
[2021-04-19 09:41] LABS: BLOOD UREA NITROGEN 14 mg/dL (7-18); CALCIUM 9.1 mg/dL (8.5-10.1); CARBON DIOXIDE 24.1 mmol/L (21-32); CHLORIDE 105 mmol/L (98-107); COR NA(FOR HYPERGLY) 142 mmol/L (136-145); CREATININE 1.21 mg/dL (0.70-1.30); SODIUM 141 mmol/L (136-145); eGFR NON BLACK RACES > 60 (>60)
[2021-04-19] MEDS ORDERED: IVERMECTIN PO SCH (10:00)
[2021-04-19 10:09] LABS: ALANINE AMINOTRANSFERASE 34 Units/L (12-78); ALKALINE PHOSPHATASE 58 Units/L (46-116); ASPARTATE AMINO TRANSFERASE 34 Units/L (15-37); COR CA(FOR HYPOALB) 9.9 mg/dL (8.5-10.1); TOTAL PROTEIN 8.2 g/dL (6.4-8.2)
[2021-04-19 13:02] VITALS: BP 118/74
[2021-04-20] MEDS ORDERED: REMDESIVIR 100 MG in NS 250 ML IV 250 ML IV SCH (09:00)
== END 2021-04-19 13:03 | disposition home or self-care (01) | DRG 178 ==
LOC: ER 13:48 → U 16:43
PROVIDERS: ADMIT Surgery; ATTEND Surgery
DX: J06.9 Acute upper respiratory infection, unspecified; I25.10 Atherosclerotic heart disease of native coronary artery without angina pectoris; R94.31 Abnormal electrocardiogram [ECG] [EKG]; E11.65 Type 2 diabetes mellitus with hyperglycemia; K57.20 Diverticulitis of large intestine with perforation and abscess without bleeding; I10 Essential (primary) hypertension; U07.1 COVID-19; K21.9 Gastro-esophageal reflux disease without esophagitis

== ENCOUNTER 2025-01-29 01:22 | Observation (INO) ==
--- NOTE | 2025-01-29 01:33 | DR.ABDMALE ---
HPI <Laura Payne - Last Filed: 02/02/25 08:20> Time seen Time Seen by Provider: 01/29/25 01:33 HPI comment HPI Comment: 54 y/o with several days of abd pain mainly in the llq which has persistently worsened; it's hard to understand what he's saying d/t stuttering/slurring speech and there's no family but he denies fevers and chills. He says he's had nine heart attacks and recently had evaluation by Dr Martinez after his ninth. PMH <Laura Payne - Last Filed: 02/02/25 08:20> PMH Past Medical History: Anxiety, CHF, Coronary Artery Disease, CVA, Diabetes, Dyslipidemia, Migraines, Hypertension and HI Past Surgical History: Yes Surgical History: Ortho Surgery Family History Family Medical History: Diabetes Mellitus, Cancer and Hypertension Social History Do you use any recreational Drugs:: No ROS <Laura Payne - Last Filed: 02/02/25 08:20> Review of Systems Constitutional: No Symptoms Reported Eyes: No Symptoms Reported ENTM: No Symptoms Reported Respiratoy: No Symptoms Reported Cardiovascular: No Symptoms Reported Gastrointestinal/Abdominal: See HPI Genitourinary: No Symptoms Reported Neurological: No Symptoms Reported Musculoskeletal: No Symptoms Reported Integumentary: No Symptoms Reported Hematologic/Lymphatic: No Symptoms Reported Endocrine: No Symptoms Reported Psychiatric: No Symptoms Reported PE <Laura Payne - Last Filed: 02/02/25 08:20> Vital Signs Vital Signs: Temp Pulse Resp BP Pulse Ox O2 Del Method 01/29/25 09:00 120 H 18 95 01/29/25 09:00 118/85 01/29/25 08:55 125/86 01/29/25 08:55 123 H 18 98 01/29/25 08:51 127 H 98 01/29/25 08:43 20 01/29/25 08:30 123 H 25 H 93 L 01/29/25 08:19 115/92 01/29/25 08:19 132 H 30 H 95 01/29/25 08:15 124 H 30 H 96 01/29/25 08:01 99/69 01/29/25 08:01 117 H 20 97 01/29/25 08:00 116 H 23 96 01/29/25 07:45 120 H 29 H 97 01/29/25 07:30 120/82 01/29/25 07:30 122 H 22 96 01/29/25 07:15 118 H 24 98 01/29/25 07:00 121 H 26 H 98 01/29/25 06:45 75 22 95 01/29/25 06:30 121/74 01/29/25 06:30 78 20 01/29/25 06:15 77 23 94 L 01/29/25 06:00 123/85 01/29/25 06:00 74 11 L 95 01/29/25 05:54 84 27 H 95 01/29/25 05:30 117 H 17 90 L 01/29/25 05:30 127/88 01/29/25 05:15 71 16 95 01/29/25 05:00 119/83 01/29/25 05:00 71 20 95 01/29/25 04:45 79 23 86 L 01/29/25 04:36 81 26 H 93 L 01/29/25 04:36 113/84 01/29/25 04:30 78 22 90 L 01/29/25 04:15 74 14 91 L 01/29/25 04:00 129/87 01/29/25 04:00 79 23 89 L 01/29/25 03:45 82 27 H 97 01/29/25 03:30 117/70 01/29/25 03:30 73 8 L 96 01/29/25 03:15 82 23 94 L 01/29/25 03:00 116/82 01/29/25 03:00 82 24 90 L 01/29/25 02:45 79 19 85 L 01/29/25 02:43 114/91 01/29/25 02:43 122 H 24 96 01/29/25 02:30 122 H 23 83 L 01/29/25 02:15 124 H 24 90 L 01/29/25 02:13 20 01/29/25 02:11 126 H 29 H 96 01/29/25 01:45 126 H 30 H 96 01/29/25 01:43 22 01/29/25 01:31 128 H 96 01/29/25 01:31 135/92 01/29/25 01:23 97.6 F 128 H 20 119/86 99 Room Air General Limitations: No Limitations General Appearance: Alert and In No Apparent Distress Head Head Exam: Normal Inspection Eyes Eye exam: Normal Appearance ENT ENT Exam: Normal Exam Neck Neck Exam: Normal Inspection Chest Chest Inspection: Normal Inspection Respiratory Respiratory Exam: Normal Lung Sounds Bilat Cardiovascular Cardiovascular Exam: Regular Rate and Normal Rhythm Abdominal Exam Abdominal Exam: Normal Inspection and Normal Bowel Sounds Abdominal Tenderness: RLQ, LLQ and Moderate Rectal Rectal Exam: Deferred Back Back Exam: Normal Inspection Extremeties Extremities Exam: Normal Inspection Exam: Male: Deferred Neurologic Neurological Exam: Alert Psychiatric Psychiatric Exam: Anxious Skin Skin Exam: Warm, Dry, Intact and Normal Color <Elmo Jeffrey - Last Filed: 01/29/25 10:47> Vital Signs Vital Signs: Temp Pulse Resp BP Pulse Ox O2 Del Method 01/29/25 09:00 120 H 18 95 01/29/25 09:00 118/85 01/29/25 08:55 125/86 01/29/25 08:55 123 H 18 98 01/29/25 08:51 127 H 98 01/29/25 08:43 20 01/29/25 08:30 123 H 25 H 93 L 01/29/25 08:19 115/92 01/29/25 08:19 132 H 30 H 95 01/29/25 08:15 124 H 30 H 96 01/29/25 08:01 99/69 01/29/25 08:01 117 H 20 97 01/29/25 08:00 116 H 23 96 01/29/25 07:45 120 H 29 H 97 01/29/25 07:30 120/82 01/29/25 07:30 122 H 22 96 01/29/25 07:15 118 H 24 98 01/29/25 07:00 121 H 26 H 98 01/29/25 06:45 75 22 95 01/29/25 06:30 121/74 01/29/25 06:30 78 20 01/29/25 06:15 77 23 94 L 01/29/25 06:00 123/85 01/29/25 06:00 74 11 L 95 01/29/25 05:54 84 27 H 95 01/29/25 05:30 117 H 17 90 L 01/29/25 05:30 127/88 01/29/25 05:15 71 16 95 01/29/25 05:00 119/83 01/29/25 05:00 71 20 95 01/29/25 04:45 79 23 86 L 01/29/25 04:36 81 26 H 93 L 01/29/25 04:36 113/84 01/29/25 04:30 78 22 90 L 01/29/25 04:15 74 14 91 L 01/29/25 04:00 129/87 01/29/25 04:00 79 23 89 L 01/29/25 03:45 82 27 H 97 01/29/25 03:30 117/70 01/29/25 03:30 73 8 L 96 01/29/25 03:15 82 23 94 L 01/29/25 03:00 116/82 01/29/25 03:00 82 24 90 L 01/29/25 02:45 79 19 85 L 01/29/25 02:43 114/91 01/29/25 02:43 122 H 24 96 01/29/25 02:30 122 H 23 83 L 01/29/25 02:15 124 H 24 90 L 01/29/25 02:13 20 01/29/25 02:11 126 H 29 H 96 01/29/25 01:45 126 H 30 H 96 01/29/25 01:43 22 01/29/25 01:31 128 H 96 01/29/25 01:31 135/92 01/29/25 01:23 97.6 F 128 H 20 119/86 99 Room Air COURSE <Laura Payne - Last Filed: 02/02/25 08:20> Treatment Treatment: 0700 per nurses, pt had a run of vtach up to 109 while sleeping; caught on ekg and appears to be svt at 81 0753 pt insists he does not drink and he has been taking his meds as prescribed; he is on the phone and has been for some time and does not appear to be in pain at all but asks what he can get for pain; nothing he's taking otc currently is helping Reevaluation 1st: Improved (sleeping) 2nd: Improved (on phone, talking and laughing) ROR <Laura Payne - Last Filed: 02/02/25 08:20> Labs Reviewed Laboratory Results Reviewed?: Yes 02/01/25 04:30 02/01/25 04:30 Laboratory: WBC 10.0 X10^3/uL (3.6-10.0) 01/29/25 01:44 RBC 5.40 X10^6/uL (4.7-6.0) 01/29/25 01:44 Hgb 16.5 g/dL (13.5-18.0) 01/29/25 01:44 Hct 49.7 % (42.0-54.0) 01/29/25 01:44 MCV 92.0 fL (80.0-100.0) 01/29/25 01:44 MCH 30.5 pg (27.0-34.0) 01/29/25 01:44 MCHC 33.2 g/dL (33.0-35.0) 01/29/25 01:44 RDW 18.0 % (11.6-16.5) H 01/29/25 01:44 Plt Count 237 X10^3/uL (150.0-450.0) 01/29/25 01:44 MPV 8.5 fL (7.4-11.0) 01/29/25 01:44 Neut % (Auto) 63.0 % (42.0-75.0) 01/29/25 01:44 Lymph % (Auto) 24.3 % (21.0-51.0) 01/29/25 01:44 Pine % (Auto) 9.3 % (0.0-13.0) 01/29/25 01:44 Eos % (Auto) 1.7 % (0.9-2.9) 01/29/25 01:44 Baso % (Auto) 1.7 % (0.2-1.0) H 01/29/25 01:44 Neut # (Auto) 6.3 x10^3/uL (2.2-4.8) H 01/29/25 01:44 Lymph # (Auto) 2.4 X10^3/uL (1.3-2.9) 01/29/25 01:44 Pine # (Auto) 0.9 x10^3/uL (0.3-0.8) H 01/29/25 01:44 Eos # (Auto) 0.2 x10^3/uL (0.0-0.2) 01/29/25 01:44 Baso # (Auto) 0.2 X10^3/uL (0.0-0.1) H 01/29/25 01:44 Absolute Nucleated RBC 0.4 /100WBC 01/29/25 01:44 Sodium 137 mmol/L (136-145) 01/29/25 01:44 Corrected Sodium TNP 01/29/25 01:44 Potassium 4.0 mmol/L (3.5-5.1) 01/29/25 01:44 Chloride 102 mmol/L (98-107) 01/29/25 01:44 Carbon Dioxide 21.4 mmol/L (21-32) 01/29/25 01:44 BUN 33 mg/dL (7-18) H 01/29/25 01:44 Creatinine 2.26 mg/dL (0.70-1.30) H 01/29/25 01:44 Est GFR (MDRD) Af Amer 39 (>60) L 01/29/25 01:44 Est GFR (MDRD) Non-Af 32 (>60) L 01/29/25 01:44 Glucose 105 mg/dL (65-99) H 01/29/25 01:44 Lactic Acid 2.0 mmol/L (0.4-2.0) 01/29/25 06:35 Calcium 8.6 mg/dL (8.5-10.1) 01/29/25 01:44 Corrected Calcium TNP 01/29/25 01:44 Magnesium 2.1 mg/dL (2.0-2.9) 01/29/25 01:44 Total Bilirubin 3.00 mg/dL (0.2-1.0) H 01/29/25 01:44 AST 324 Units/L (15-37) H 01/29/25 01:44 ALT 230 Units/L (12-78) H 01/29/25 01:44 Alkaline Phosphatase 217 Units/L (46-116) H 01/29/25 01:44 Troponin I High Sens 274.3 ng/L (4.0-60.0) H* 01/29/25 01:44 B-Natriuretic Peptide 3170 pg/mL (0-79) H 01/29/25 01:44 Total Protein 8.0 g/dL (6.4-8.2) 01/29/25 01:44 Albumin 3.6 g/dL (3.4-5.0) 01/29/25 01:44 Globulin 4.4 g/dL (2.5-4.5) 01/29/25 01:44 Albumin/Globulin Ratio 0.8 Ratio (1.1-2.1) L 01/29/25 01:44 Specimen Type Clean catch urine 01/29/25 08:40 Urine Color Yellow (YELLOW) 01/29/25 08:40 Urine Appearance Clear (CLEAR) 01/29/25 08:40 Urine pH 5.0 (5.0 - 8.0) 01/29/25 08:40 Ur Specific [place] 1.020 (1.000-1.030) 01/29/25 08:40 Urine Protein 1+ (NEGATIVE) 01/29/25 08:40 Urine Glucose (UA) Negative (NEGATIVE) 01/29/25 08:40 Urine Ketones Negative (NEGATIVE) 01/29/25 08:40 Urine Blood 3+ (NEGATIVE) 01/29/25 08:40 Urine Nitrite Negative (NEGATIVE) 01/29/25 08:40 Urine Bilirubin Negative (NEGATIVE) 01/29/25 08:40 Urine Urobilinogen Normal (NORMAL) 01/29/25 08:40 Ur Leukocyte Esterase Negative (NEGATIVE) 01/29/25 08:40 Urine RBC 3-5 /HPF (0-3) A 01/29/25 08:40 Urine WBC 0-2 /HPF (0-5) 01/29/25 08:40 Ur Squamous Epith Cells Rare /HPF (NEGATIVE) 01/29/25 08:40 Urine Bacteria Trace /HPF (NEGATIVE) 01/29/25 08:40 Ur Culture Indicated? No/not indicated 01/29/25 08:40 Urine Opiates Screen Negative (NEG=<300) 01/29/25 08:40 Urine Methadone Screen Negative (NEG=<300) 01/29/25 08:40 Ur Barbiturates Screen Negative (NEG=<200) 01/29/25 08:40 Ur Phencyclidine Scrn Negative (NEG=<25) 01/29/25 08:40 Ur Amphetamines Screen Negative (NEG=<1000) 01/29/25 08:40 U Benzodiazepines Scrn Negative (NEG=<200) 01/29/25 08:40 Urine Cocaine Screen Negative (NEG=<300) 01/29/25 08:40 U Marijuana (THC) Screen Negative (NEG=<50) 01/29/25 08:40 Ethyl Alcohol mg/dL < 3 mg/dL (0-19.9) 01/29/25 01:44 XRAY XRAY Interpreted by: Radiologist X-ray Results: ct abd/pelvis w/o: 1. No explanation for left lower quadrant pain. 2. Mild colonic diverticulosis. 3. Right renal angiomyolipoma. 4. Heart size upper limits of normal. 5. Small right pleural effusion. <Elmo Jeffrey - Last Filed: 01/29/25 10:47> Labs Reviewed Laboratory: WBC 10.0 X10^3/uL (3.6-10.0) 01/29/25 01:44 RBC 5.40 X10^6/uL (4.7-6.0) 01/29/25 01:44 Hgb 16.5 g/dL (13.5-18.0) 01/29/25 01:44 Hct 49.7 % (42.0-54.0) 01/29/25 01:44 MCV 92.0 fL (80.0-100.0) 01/29/25 01:44 MCH 30.5 pg (27.0-34.0) 01/29/25 01:44 MCHC 33.2 g/dL (33.0-35.0) 01/29/25 01:44 RDW 18.0 % (11.6-16.5) H 01/29/25 01:44 Plt Count 237 X10^3/uL (150.0-450.0) 01/29/25 01:44 MPV 8.5 fL (7.4-11.0) 01/29/25 01:44 Neut % (Auto) 63.0 % (42.0-75.0) 01/29/25 01:44 Lymph % (Auto) 24.3 % (21.0-51.0) 01/29/25 01:44 Pine % (Auto) 9.3 % (0.0-13.0) 01/29/25 01:44 Eos % (Auto) 1.7 % (0.9-2.9) 01/29/25 01:44 Baso % (Auto) 1.7 % (0.2-1.0) H 01/29/25 01:44 Neut # (Auto) 6.3 x10^3/uL (2.2-4.8) H 01/29/25 01:44 Lymph # (Auto) 2.4 X10^3/uL (1.3-2.9) 01/29/25 01:44 Pine # (Auto) 0.9 x10^3/uL (0.3-0.8) H 01/29/25 01:44 Eos # (Auto) 0.2 x10^3/uL (0.0-0.2) 01/29/25 01:44 Baso # (Auto) 0.2 X10^3/uL (0.0-0.1) H 01/29/25 01:44 Absolute Nucleated RBC 0.4 /100WBC 01/29/25 01:44 Sodium 137 mmol/L (136-145) 01/29/25 01:44 Corrected Sodium TNP 01/29/25 01:44 Potassium 4.0 mmol/L (3.5-5.1) 01/29/25 01:44 Chloride 102 mmol/L (98-107) 01/29/25 01:44 Carbon Dioxide 21.4 mmol/L (21-32) 01/29/25 01:44 BUN 33 mg/dL (7-18) H 01/29/25 01:44 Creatinine 2.26 mg/dL (0.70-1.30) H 01/29/25 01:44 Est GFR (MDRD) Af Amer 39 (>60) L 01/29/25 01:44 Est GFR (MDRD) Non-Af 32 (>60) L 01/29/25 01:44 Glucose 105 mg/dL (65-99) H 01/29/25 01:44 Lactic Acid 2.0 mmol/L (0.4-2.0) 01/29/25 06:35 Calcium 8.6 mg/dL (8.5-10.1) 01/29/25 01:44 Corrected Calcium TNP 01/29/25 01:44 Magnesium 2.1 mg/dL (2.0-2.9) 01/29/25 01:44 Total Bilirubin 3.00 mg/dL (0.2-1.0) H 01/29/25 01:44 AST 324 Units/L (15-37) H 01/29/25 01:44 ALT 230 Units/L (12-78) H 01/29/25 01:44 Alkaline Phosphatase 217 Units/L (46-116) H 01/29/25 01:44 Troponin I High Sens 274.3 ng/L (4.0-60.0) H* 01/29/25 01:44 B-Natriuretic Peptide 3170 pg/mL (0-79) H 01/29/25 01:44 Total Protein 8.0 g/dL (6.4-8.2) 01/29/25 01:44 Albumin 3.6 g/dL (3.4-5.0) 01/29/25 01:44 Globulin 4.4 g/dL (2.5-4.5) 01/29/25 01:44 Albumin/Globulin Ratio 0.8 Ratio (1.1-2.1) L 01/29/25 01:44 Specimen Type Clean catch urine 01/29/25 08:40 Urine Color Yellow (YELLOW) 01/29/25 08:40 Urine Appearance Clear (CLEAR) 01/29/25 08:40 Urine pH 5.0 (5.0 - 8.0) 01/29/25 08:40 Ur Specific [place] 1.020 (1.000-1.030) 01/29/25 08:40 Urine Protein 1+ (NEGATIVE) 01/29/25 08:40 Urine Glucose (UA) Negative (NEGATIVE) 01/29/25 08:40 Urine Ketones Negative (NEGATIVE) 01/29/25 08:40 Urine Blood 3+ (NEGATIVE) 01/29/25 08:40 Urine Nitrite Negative (NEGATIVE) 01/29/25 08:40 Urine Bilirubin Negative (NEGATIVE) 01/29/25 08:40 Urine Urobilinogen Normal (NORMAL) 01/29/25 08:40 Ur Leukocyte Esterase Negative (NEGATIVE) 01/29/25 08:40 Urine RBC 3-5 /HPF (0-3) A 01/29/25 08:40 Urine WBC 0-2 /HPF (0-5) 01/29/25 08:40 Ur Squamous Epith Cells Rare /HPF (NEGATIVE) 01/29/25 08:40 Urine Bacteria Trace /HPF (NEGATIVE) 01/29/25 08:40 Ur Culture Indicated? No/not indicated 01/29/25 08:40 Urine Opiates Screen Negative (NEG=<300) 01/29/25 08:40 Urine Methadone Screen Negative (NEG=<300) 01/29/25 08:40 Ur Barbiturates Screen Negative (NEG=<200) 01/29/25 08:40 Ur Phencyclidine Scrn Negative (NEG=<25) 01/29/25 08:40 Ur Amphetamines Screen Negative (NEG=<1000) 01/29/25 08:40 U Benzodiazepines Scrn Negative (NEG=<200) 01/29/25 08:40 Urine Cocaine Screen Negative (NEG=<300) 01/29/25 08:40 U Marijuana (THC) Screen Negative (NEG=<50) 01/29/25 08:40 Ethyl Alcohol mg/dL < 3 mg/dL (0-19.9) 01/29/25 01:44 Opioid <Laura Payne - Last Filed: 02/02/25 08:20> Opioid Risk Tool Personal Hx of Substance Abuse: Illegal Drugs Age (Jose David box if 16-45): No History of Preadolescent Sexual Abuse: No Total: 0 Total Score Risk Category: Low Risk Copyright: Kush BETANCUR predicting aberrant behaviors <Elmo Jeffrey - Last Filed: 01/29/25 10:47> Opioid Risk Tool Total: 0 Total Score Risk Category: Low Risk Discharge Plan Diagnosis Discharge Problem: Abdominal pain, Non-sustained ventricular tachycardia, Transaminitis CHF (congestive heart failure) Qualifiers: Heart failure type: combined systolic and diastolic Heart failure chronicity: a cute on chronic Qualified Code(s): I50.43 - Acute on chronic combined systolic (congestive) and diastolic (congestive) heart failure Discharge Plan Patient Disposition: ADMITTED INPATIENT Condition: Stable Orders to Discharge Patient Discharge Orders: Discharge (Routine); Ordered 02/01/25 Ordered By: ROSA DELGADO Provider Note <Elmo Jeffrey - Last Filed: 01/29/25 10:47> Additional Notes pt had non-sustained run of V-tach, has remained tachycardic since my arrival. CT chest shows pulm edema and small bilat pleural effusions. Dr Delgado accepts for admission at this time.
[2025-01-29] MEDS: MORPHINE SULFATE INJ 2 MG INJ IVP ONE (01:43)
[2025-01-29] MEDS: ZOFRAN INJ 4 MG VIAL IVP ONE ×2 (01:43→08:43)
[2025-01-29 01:54] LABS: MEAN PLATELET VOLUME 8.5 fL (7.4-11.0); RED CELL DISTRIBUTION WIDTH 18.0 % (11.6-16.5)
[2025-01-29 02:04] LABS: CREATININE 2.26 mg/dL (0.70-1.30); eGFR NON BLACK RACES 32 (>60)
--- NOTE | 2025-01-29 02:53 | CT ---
PROCEDURE: CT Abdomen and Pelvis without IV Contrast. HISTORY: PT IN ED VIA STRETCHER PER [facility] WITH C/O LEFT LOWER QUAD ABD PAIN, N/V AND DIARRHEA X 2 WEEKS.; OR, CAD, DM, HTN, CVA, MIGRAINES, CHF SX: ORTHO, LEFT KNEE . TECHNIQUE: Axial images were performed through the abdomen and pelvis without the administration of IV contrast with multiplanar reformations . Oral contrast was notadministered . Dose reduction techniques including Automated Exposure Control (AEC) and adjustment of mA and kV were utilized .. COMPARISON: 12/19/2024. TECHNICAL QUALITY: Satisfactory. FINDINGS: Small right pleural effusion. No pulmonary consolidation. Heart size upper limits of normal. Liver, spleen, adrenals, pancreas show no abnormality. Kidneys show no stones or obstruction. Probable 2 cm angiomyolipoma right kidney posterolaterally. Some increased inhomogeneous attenuation gallbladder lumen could represent stones or sludge without definite inflammation and normal biliary tree. No ascites or pneumoperitoneum. Mild atherosclerosis abdominal aorta. No lymphadenopathy. No bowel obstruction or inflammation. Mild colonic diverticulosis. No evidence of diverticulitis. Normal appendix. Pelvis shows no masses or free fluid and normal urinary bladder. No acute bony abnormality. IMPRESSION: 1. No explanation for left lower quadrant pain. 2. Mild colonic diverticulosis. 3. Right renal angiomyolipoma. 4. Heart size upper limits of normal. 5. Small right pleural effusion. THIS IS AN ELECTRONICALLY VERIFIED FINAL REPORT 01/29/2025 2:49 AM - Electronically signed by Jaspreet Luong MD
[2025-01-29] MEDS: NS 1,000 ML IV 1,000 ML IV ONE (03:27)
[2025-01-29] MEDS: COREG TAB 3.125 MG PO STA (08:05)
[2025-01-29] MEDS: MORPHINE SULFATE INJ 4 MG IVP ONE (08:43)
[2025-01-29 08:50] LABS: BLOOD/HEMOGLOBIN,URINE 3+ (NEGATIVE); LEUKOCYTE ESTERASE ,URINE NEGATIVE (NEGATIVE); NITRITES,URINE NEGATIVE (NEGATIVE)
--- NOTE | 2025-01-29 08:57 | EKG ---
Test Reason : tachycardia Blood Pressure : */* mmHG Vent. Rate : 126 BPM Atrial Rate : * BPM P-R Int : * ms QRS Dur : 114 ms QT Int : 348 ms P-R-T Axes : * 64 1 degrees QTc Int : 504 ms Accelerated Junctional rhythm with retrograde conduction with occasional premature ventricular complexes Incomplete right bundle branch block Minimal voltage criteria for LVH, may be normal variant ( [place] product ) Abnormal ECG When compared with ECG of 19-DEC-2024 10:51, Junctional rhythm has replaced Sinus rhythm Incomplete right bundle branch block is now present Confirmed by Molina Roche MD ([id number]) on 01/29/2025 10:16:08 AM Referred By: Confirmed By: Molina Roche MD
[2025-01-29 08:58] LABS: APPEARANCE,URINE CLEAR (CLEAR)
[2025-01-29 09:00] LABS: SQUAMOUS EPITHELIAL CELL,UR RARE /HPF (NEGATIVE)
--- NOTE | 2025-01-29 09:13 | CT ---
EXAMINATION: CHEST W/O CON HISTORY: dyspnea; . COMPARISON: 07/30/2024 CTA chest TECHNIQUE: Routine axial imaging of the chest was performed. Noncontrast CT of the chest was performed limiting diagnostic sensitivity.. The above CT scan was done with automated exposure control and the mA and kV was adjusted to obtain quality images according to patient size. FINDINGS: Lungs: There is atelectasis in the lung bases. There is a bleb medially in the right upper lobe. There is some bronchial thickening. Smooth septal thickening suggesting interstitial edema. No alveolar infiltrates or suspicious pulmonary nodules. Central Airways: No obstructing endobronchial lesions. Pleura: Small right effusion and trace of pleural fluid on the left. Atelectasis. No pneumothorax Thoracic Aorta: Tapers normally. Atherosclerotic calcification Main Pulmonary Trunk: Normal diameter Lymph Nodes: No pathologic hilar, axillary or mediastinal adenopathy Heart/Pericardium: Cardiomegaly. No significant pericardial effusion. Coronary artery calcification in the LAD. Liver: No acute findings. GB/Biliary: Distended gallbladder. No gallstones or wall thickening. Spleen: Normal size and density Pancreas: No acute findings as visualized Adrenal Glands: No mass Kidneys no hydronephrosis. Abdominal Aorta: Tapers normally Retroperitoneum: No pathologically enlarged lymph nodes Bowel/Peritoneal Cavity: No acute findings as visualized Osseous Structures: Mild degenerative changes in the spine. No acute findings Other: None IMPRESSION: Smooth septal thickening with interstitial edema and small bilateral effusions. Follow-up recommended. The above CT scan was done with automated exposure control and the mA and kV was adjusted to obtain quality images according to patient size THIS IS AN ELECTRONICALLY VERIFIED FINAL REPORT 01/29/2025 9:09 AM - Electronically signed by Barak Lozoya MD
[2025-01-29] MEDS: LASIX IVP ONE (09:28)
--- NOTE | 2025-01-29 09:57 | EKG ---
Test Reason : EKG changes Blood Pressure : */* mmHG Vent. Rate : 71 BPM Atrial Rate : 71 BPM P-R Int : 154 ms QRS Dur : 92 ms QT Int : 408 ms P-R-T Axes : 61 19 21 degrees QTc Int : 443 ms Normal sinus rhythm Left atrial enlargement Left ventricular hypertrophy ( [place] product ) Nonspecific T wave abnormality Abnormal ECG When compared with ECG of 29-JAN-2025 08:56, (Unconfirmed) Sinus rhythm has replaced Junctional rhythm Vent. rate has decreased BY 55 BPM QRS duration has decreased Nonspecific T wave abnormality now evident in Lateral leads Confirmed by Molina Roche MD ([id number]) on 01/29/2025 10:13:43 AM Referred By: Confirmed By: Molina Roche MD
[2025-01-29] MEDS ORDERED: TYLENOL 325 MG TAB PO PRN (11:15)
[2025-01-29] MEDS ORDERED: ATIVAN TAB 1 MG PO PRN (11:15)
[2025-01-29] MEDS ORDERED: CONSULT PHARMACY - POTASSIUM & MAGNESIUM XX SCH (11:15)
[2025-01-29] MEDS ORDERED: ULTRAM PO PRN (11:15)
[2025-01-29] MEDS ORDERED: MORPHINE SULFATE INJ 2 MG INJ IVP PRN (11:15)
[2025-01-29] MEDS ORDERED: ZOFRAN TAB 4 MG PO PRN (11:15)
[2025-01-29] MEDS: ZOFRAN INJ 4 MG VIAL ONE (11:16)
[2025-01-29] MEDS: MORPHINE SULFATE INJ 4 MG ONE (11:16)
[2025-01-29 11:50] VITALS: BMI 26.2
[2025-01-29] MEDS ORDERED: NovoLIN R (or HumuLIN R) SUBCUT PRN (12:12)
[2025-01-29] MEDS: ZOFRAN INJ 4 MG VIAL IVP PRN (16:08)
[2025-01-29] MEDS: LASIX IVP SCH (16:15)
[2025-01-29] MEDS: COREG TAB 3.125 MG PO SCH (20:27)
[2025-01-29] MEDS: LIPITOR TAB 40 MG PO SCH (20:27)
[2025-01-29] MEDS: ENTRESTO 24/26 MG TABLET PO SCH (20:27)
[2025-01-29] MEDS: SNACK - Diabetic Appropriate PO SCH (20:39)
[2025-01-30 04:56] LABS: MEAN PLATELET VOLUME 8.7 fL (7.4-11.0); RED CELL DISTRIBUTION WIDTH 18.0 % (11.6-16.5)
[2025-01-30 05:07] LABS: COR CA(FOR HYPOALB) 8.9 mg/dL (8.5-10.1); CREATININE 1.97 mg/dL (0.70-1.30); eGFR NON BLACK RACES 38 (>60)
[2025-01-30] MEDS ORDERED: CONSULT PHARMACY - POTASSIUM & MAGNESIUM XX SCH (06:00)
--- NOTE | 2025-01-30 07:33 | RAD ---
EXAM: CHEST, 1 VIEW HISTORY: CHF EXACERBATION ; RI, CAD, HTN, DM, DVA, CHF SX: ORTHO-LEFT KNEE COMPARISON: No relevant prior studies were available for comparison at the time of interpretation. TECHNIQUE: CHEST, 1 VIEW FINDINGS: Chest: Lines and tubes: Cardiac leads overlie the chest. Mediastinum: Cardiomegaly. Pulmonary vessels: Pulmonary vasculature is prominent. Lung campbell: No suspicious airspace opacity. Pleura: No effusion. No pneumothorax. Bones and soft tissues: No acute osseous or soft tissue abnormality. IMPRESSION: 1. No acute cardiopulmonary abnormality THIS IS AN ELECTRONICALLY VERIFIED FINAL REPORT 01/30/2025 7:30 AM - Electronically signed by Pranay Keith MD
[2025-01-30] MEDS: MAG-OX TAB PO SCH (08:29)
[2025-01-30] MEDS: FARXIGA PO SCH (08:29)
[2025-01-30] MEDS: K-DUR TAB 20 MEQ PO SCH (08:30)
[2025-01-30] MEDS: ALDACTONE TAB 25 MG PO SCH (08:30)
[2025-01-30] MEDS: ASPIRIN EC 81 MG PO SCH (08:31)
[2025-01-30] MEDS: MAGNESIUM SULFATE 1 GRAM/100 mL PREMIX 1 G/100 ML BAG IV SCH (09:07)
[2025-01-30] MEDS: ENTRESTO 24/26 MG TABLET PO SCH (09:47)
[2025-01-30] MEDS: POTASSIUM CHLORIDE LIQ PO ONE (10:04)
[2025-01-30] MEDS: COLACE CAP 100 MG PO SCH (10:04)
[2025-01-30] MEDS: LOVENOX INJ 30 MG SYR SC SCH (10:06)
[2025-01-30] MEDS: MIRALAX POWDER (1 DOSE 17 G) PO SCH (20:36)
[2025-01-30] MEDS: NORCO 5/325 MG TAB PO PRN (23:03)
[2025-01-31 05:23] LABS: MEAN PLATELET VOLUME 8.7 fL (7.4-11.0); RED CELL DISTRIBUTION WIDTH 18.2 % (11.6-16.5)
[2025-01-31 05:24] LABS: COR CA(FOR HYPOALB) 8.9 mg/dL (8.5-10.1); CREATININE 2.11 mg/dL (0.70-1.30); eGFR NON BLACK RACES 35 (>60)
--- NOTE | 2025-01-31 07:32 | RAD ---
EXAM: CHEST, PA/LAT ADULT HISTORY: CHF; ND, CAD, HTN, DM, CVA, CHF SX: ORTHO-LEFT KNEE COMPARISON: No relevant prior studies were available for comparison at the time of interpretation. TECHNIQUE: CHEST, PA/LAT ADULT FINDINGS: Chest: Lines and tubes: Cardiac leads overlie the chest. Mediastinum: Borderline cardiomegaly. Pulmonary vessels: Pulmonary vasculature is prominent. Lung campbell: No suspicious airspace opacity. Pleura: No effusion. No pneumothorax. Bones and soft tissues: No acute osseous or soft tissue abnormality. IMPRESSION: 1. No acute cardiopulmonary abnormality THIS IS AN ELECTRONICALLY VERIFIED FINAL REPORT 01/31/2025 7:29 AM - Electronically signed by Pranay Keith MD
[2025-01-31] MEDS: LINZESS PO SCH (09:05)
[2025-01-31] MEDS: ALDACTONE TAB 25 MG PO SCH (09:05)
[2025-01-31] MEDS ORDERED: LINZESS PO SCH (09:30)
[2025-01-31] MEDS ORDERED: COREG TAB 6.25 MG PO SCH (10:00)
[2025-01-31] MEDS: COREG TAB 3.125 MG PO NR (10:20)
[2025-01-31] MEDS: LINZESS PO NR (10:20)
[2025-01-31] MEDS: DULCOLAX SUPPOSITORY 10 MG RECTAL ONE (10:23)
--- NOTE | 2025-01-31 14:26 | US ---
EXAM: RIGHT UPPER QUADRANT ULTRASOUND HISTORY: elevated transaminases; COMPARISON: CT dated 01/29/2025. TECHNIQUE: Ultrasound of the right upper quadrant was performed to evaluate the liver FINDINGS: Liver/bile ducts: Homogeneous parenchyma. No focal liver lesion identified. No intrahepatic biliary dilatation. Common bile duct measures 2 mm. Gallbladder: Contracted. No significant pericholecystic fluid. IMPRESSION: No acute findings. No biliary dilatation. THIS IS AN ELECTRONICALLY VERIFIED FINAL REPORT 01/31/2025 2:22 PM - Electronically signed by Siddharth Carlin MD
[2025-01-31] MEDS: COREG TAB 6.25 MG PO SCH (21:41)
[2025-02-01 03:46] VITALS: PULSE 73
[2025-02-01 05:00] LABS: MEAN PLATELET VOLUME 8.8 fL (7.4-11.0); RED CELL DISTRIBUTION WIDTH 17.8 % (11.6-16.5)
[2025-02-01 05:10] LABS: COR CA(FOR HYPOALB) 9.2 mg/dL (8.5-10.1); CREATININE 1.91 mg/dL (0.70-1.30); eGFR NON BLACK RACES 39 (>60)
[2025-02-01 08:06] VITALS: BP 100/72; RESP 14; TEMP 97.7; O2SAT 96
[2025-02-01] MEDS: LINZESS PO SCH (09:00)
[2025-02-01] MEDS ORDERED: LINZESS PO SCH (09:00)
== END 2025-02-01 11:15 | disposition home or self-care (01) ==
LOC: ER 01:22 → MED/SURG 01:22
PROVIDERS: ADMIT Obstetrics & Gynecology Obstetrics; ATTEND Obstetrics & Gynecology Obstetrics
DX: Z86.73 Personal history of transient ischemic attack (TIA), and cerebral infarction without residual deficits; J90 Pleural effusion, not elsewhere classified; I25.2 Old myocardial infarction; R00.0 Tachycardia, unspecified; R10.32 Left lower quadrant pain; R10.84 Generalized abdominal pain; R94.31 Abnormal electrocardiogram [ECG] [EKG]; I50.43 Acute on chronic combined systolic (congestive) and diastolic (congestive) heart failure; R47.81 Slurred speech; E11.65 Type 2 diabetes mellitus with hyperglycemia; I11.0 Hypertensive heart disease with heart failure; D17.71 Benign lipomatous neoplasm of kidney; I27.20 Pulmonary hypertension, unspecified; R06.09 Other forms of dyspnea; R79.89 Other specified abnormal findings of blood chemistry; R11.2 Nausea with vomiting, unspecified; K59.09 Other constipation; I25.10 Atherosclerotic heart disease of native coronary artery without angina pectoris; R19.7 Diarrhea, unspecified